=== PATIENT | male | born 1940 | race Caucasian/White ===

== ENCOUNTER → 2016-03-31 | Outpatient (REF) | payer MEDICARE ==
[2016-03-31 12:18] LABS: ALBUMIN 3.9 GM/DL (3.2-5.2); ALBUMIN/GLOBULIN RATIO 1.18 (1.00-1.93); ALKALINE PHOSPHATASE 63 U/L (45-117); ALT/SGPT 36 U/L (12-78); ANION GAP 6 MEQ/L (8-16); AST/SGOT 23 U/L (15-37); BILIRUBIN,TOTAL 0.6 MG/DL (0.2-1.0); BLOOD UREA NITROGEN 16 MG/DL (7-18); CALCIUM LEVEL 9.1 MG/DL (8.8-10.2); CARBON DIOXIDE LEVEL 29 MEQ/L (21-32); CHLORIDE LEVEL 103 MEQ/L (98-107); CHOLESTEROL LEVEL 173 MG/DL (<200); CREATININE FOR GFR 0.97 MG/DL (0.70-1.30); GLOMERULAR FILTRATION RATE > 60.0 (>42); GLUCOSE, FASTING 92 MG/DL (83-110); POTASSIUM SERUM 4.4 MEQ/L (3.5-5.1); SODIUM LEVEL 138 MEQ/L (136-145); TOTAL PROTEIN 7.2 GM/DL (6.4-8.2); TRIGLYCERIDES LEVEL 101 MG/DL (<150)
== END ==
LOC: M SFHCPLAZ 09:05
PROVIDERS: ATTEND Internal Medicine
DX: I10 Essential (primary) hypertension (principal); E78.00 Pure hypercholesterolemia, unspecified

== ENCOUNTER → 2016-04-08 | Outpatient (CLI) | payer MEDICARE ==
--- NOTE | 2016-04-08 11:04 | REP ---
ABDOMINAL AORTIC SONOGRAPHY: HISTORY: Abdominal aortic aneurysm. Comparison sonography April 07, 2014 reported a fusiform distal aortic aneurysm measuring 3.1 cm in AP dimension. TODAY'S SONOGRAPHIC FINDINGS: The abdominal aorta measures 2.1 x 2.5 cm in AP x transverse dimension respectively at the diaphragmatic hiatus. The dimensions at the main renal artery level are 1.5 x 1.7 cm. The mid aorta measures 1.7 x 1.8 cm. There is a 4.3 x 4.2 cm distal aortic fusiform aneurysm noted. This is slightly larger than on the prior study. The craniocaudal span of the aneurysm is 6.6 cm. The right and left common iliac arteries are normal measured 1.0 cm in greatest AP diameter on each side. IMPRESSION: 4.3 x 4.2 cm distal aortic aneurysm, infrarenal, somewhat increased in size over the interval since the April 07, 2014 prior study. Signed by Satya Bradford MD 04/08/2016 04:43 P
== END ==
LOC: M RAD 07:44
PROVIDERS: ATTEND Internal Medicine
DX: I71.4 Abdominal aortic aneurysm, without rupture (principal)

== ENCOUNTER 2016-05-12 09:25 | Emergency (ER) | payer MEDICARE ==
[~2016-05-12] VITALS: Ht 182.9 cm; Wt 112.5 kg
[2016-05-12 10:07] LABS: BASO % 0.3 % (0.0-1.0); EOS # 0.4 K/mm3 (0.0-0.50); EOS % 5.6 % (0.0-3.0); LARGE UNSTAINED CELL # 0.1 K/mm3 (0.0-0.4); LARGE UNSTAINED CELL % 1.8 % (0.0-4.0); LYMPH # 1.6 K/mm3 (1.5-4.5); LYMPH % 23.7 % (24.0-44.0); MEAN CORPUSCULAR HEMOGLOBIN 31.4 pg (27.0-33.0); MEAN CORPUSCULAR HGB CONC 33.1 g/dl (32.0-36.5); MEAN CORPUSCULAR VOLUME 94.9 fl (80.0-96.0); MONO # 0.4 K/mm3 (0.0-0.8); MONO % 6.3 % (0.0-5.0); NEUTROPHILS % 62.4 % (36.0-66.0); PLATELET COUNT, AUTOMATED 175 k/mm3 (150-450); RED CELL DISTRIBUTION WIDTH 12.6 % (11.5-14.5); WHITE BLOOD COUNT 6.3 K/mm3 (4.0-10.0)
--- NOTE | 2016-05-12 10:13 | REP ---
CHEST, PORTABLE: AP portable view of the chest is performed. Mild bibasilar fibrotic changes are seen. There is no acute infiltrate or pulmonary edema. The heart is not enlarged. There is some tortuosity of the thoracic aorta. The mediastinal silhouette is unchanged. IMPRESSION: Mild chronic findings without evidence of acute infiltrate or pulmonary edema. Signed by Darin Freed MD 05/12/2016 04:50 P
[2016-05-12 10:26] LABS: ALBUMIN/GLOBULIN RATIO 1.21 (1.00-1.93); ALKALINE PHOSPHATASE 65 U/L (45-117); ALT/SGPT 33 U/L (12-78); ANION GAP 8 MEQ/L (8-16); AST/SGOT 20 U/L (15-37); BILIRUBIN,DIRECT 0.1 MG/DL (0.0-0.2); BILIRUBIN,TOTAL 0.6 MG/DL (0.2-1.0); BLOOD UREA NITROGEN 19 MG/DL (7-18); CALCIUM LEVEL 9.3 MG/DL (8.8-10.2); CARBON DIOXIDE LEVEL 27 MEQ/L (21-32); CHLORIDE LEVEL 103 MEQ/L (98-107); CREATININE FOR GFR 1.05 MG/DL (0.70-1.30); GLOMERULAR FILTRATION RATE > 60.0 (>42); GLUCOSE, FASTING 134 MG/DL (83-110); POTASSIUM SERUM 4.1 MEQ/L (3.5-5.1); SODIUM LEVEL 138 MEQ/L (136-145); TOTAL PROTEIN 7.3 GM/DL (6.4-8.2)
[2016-05-12] MEDS ORDERED: CLOPIDOGREL 75 MG TAB PO STA (13:41)
[2016-05-12] MEDS ORDERED: CLOPIDOGREL 300 MG TAB (PLAVIX) PO STA (13:52)
[2016-05-12 14:42] VITALS: BP 149/71
--- NOTE | 2016-05-12 18:58 | ECGEPIP ---
Stationary ECG Study [facility] - ED Test Date: 2016-05-12 Pat Name: RICHARD CHANDLER Department: Room: - Gender: M Rnfa: jackie : 1940 Requested By: Meena Mcgee Order Number: [id number] Reading MD: Ravi Benito Measurements Intervals [place] Rate: 71 P: 186 DE: 126 QRS: 25 QRSD: 89 T: 63 QT: 371 QTc: 405 Interpretive Statements SINUS RHYTHM WITH 1ST DEGREE AV BLOCK ABNORMAL RHYTHM ECG SIMILAR TO 08/11/11 Electronically Signed On 05-12-2016 18:58:23 EDT by Ravi Benito
== END 2016-05-12 14:47 ==
LOC: M ED 10:18
DX: I20.9 Angina pectoris, unspecified (principal); I10 Essential (primary) hypertension; E78.5 Hyperlipidemia, unspecified; I71.4 Abdominal aortic aneurysm, without rupture; F41.9 Anxiety disorder, unspecified; F32.9 Major depressive disorder, single episode, unspecified

== ENCOUNTER 2016-06-17 13:03 | Outpatient (RCR) | payer MEDICARE | END 2016-07-06 | LOC: M CR 13:03 | PROVIDERS: ATTEND Internal Medicine Cardiovascular Disease | DX: Z51.89 Encounter for other specified aftercare (principal); I25.10 Atherosclerotic heart disease of native coronary artery without angina pectoris ==

== ENCOUNTER → 2016-09-07 | Outpatient (CLI) | payer MEDICARE ==
--- NOTE | 2016-09-11 13:51 | SLEEPCENT ---
DATE OF STUDY: 09/07/2016 ORDERED BY: Shena Ordoñez Nocturnal polysomnography was performed due to concern for the obstructive sleep apnea syndrome in this patient with a history of snoring, nonrestorative sleep and an abnormal nocturnal oximetry tracing. 7 hours and 58 minutes of data were reviewed. There were 284 minutes of sleep identified. Sleep latency was prolonged at 65 minutes. Rapid eye movement (REM) latency was normal at 101 minutes. Sleep architecture showed fragmentation. Progression was reasonably well maintained. There were 4 REM periods appreciated. Overall sleep efficiency was 60%. The patient's electrocardiogram (EKG) showed a sinus rhythm with PVCs. Average heart rate 54 beats per minute. Electroencephalogram (EEG) showed reasonably normal waveforms for awake and sleep. There were 214 respiratory events identified of 10 seconds in duration or greater for an apnea-hypopnea index of 45.2. The events were obstructive in nature, not exclusive to sleep stage and more frequent, but not exclusive in the supine posture. Arousals from respiratory events occurred 22.8 times per hour and oxygen desaturations were seen into the low 70s. There was also some limb activity appreciated and 4 trains of 30 events. Limb movement arousal index was borderline at 5.9. IMPRESSION: 1. Severe obstructive sleep apnea syndrome (G47.33), apnea-hypopnea index 45.2. 2. Mild periodic limb movement disorder (G47.61), limb movement arousal index 5.9. RECOMMENDATION: The patient should be encouraged to return to the sleep disorder center for pressure therapy. In the interim, alcohol and sedative avoidance should be practiced and caution exercised during the operation of motor vehicles. Pending response to pressure therapy, interventions to reduce the frequency of arousal from limb activity may also be helpful.
== END ==
LOC: M SLEEP 19:49
PROVIDERS: ATTEND Nurse Practitioner Adult Health
DX: G47.33 Obstructive sleep apnea (adult) (pediatric) (principal); G47.61 Periodic limb movement disorder

== ENCOUNTER → 2016-09-18 | Outpatient (CLI) | payer MEDICARE ==
--- NOTE | 2016-09-24 09:34 | SLEEPCENT ---
DATE OF PROCEDURE: 09/18/2016 ORDERED BY: Shena Ordoñez Nocturnal polysomnography was performed for the titration of pressure therapy in this patient with obstructive sleep apnea syndrome. Apnea hypopnea index of 45.2. For testing a ResMed Air Touch full face mask of medium size was used, 4 cm of water pressure were applied to the circuit and the lights were extinguished. 6 hours and 39 minutes of data were reviewed. There were 238 minutes of sleep identified. Sleep latency was prolonged at 42 minutes. Rapid eye movement (REM) latency was short at 58 minutes. Sleep architecture showed some improvement with pressure therapy. There were two REM periods appreciated. The overall sleep efficiency was 60.6%. Patient's EKG showed a sinus rhythm with an average heart rate of 55 beats per minute. EEG showed reasonably normal wave forms for wake and sleep. Respiratory events were fully palliated with a CPAP at a pressure of +10 and persistent limb activity was appreciated. Limb movement arousal index was 12.1 up from the diagnostic study. IMPRESSION: 1. Obstructive sleep apnea syndrome (G47.33). 2. Periodic limb movement disorder (G47.61). RECOMMENDATIONS: Nightly use of pressure therapy at 10 cm of water should be sufficient to address the patients respiratory events. Interventions to reduce the frequency of arousal from limb activity may also improve architecture of sleep.
== END ==
LOC: M SLEEP 20:00
PROVIDERS: ATTEND Nurse Practitioner Adult Health
DX: G47.33 Obstructive sleep apnea (adult) (pediatric) (principal)

== ENCOUNTER → 2017-03-22 | Outpatient (REF) | payer MEDICARE ==
[2017-03-22 11:00] LABS: HEMATOCRIT 48.1 % (42.0-52.0); HEMOGLOBIN 15.9 g/dl (14.0-18.0); MEAN CORPUSCULAR HGB CONC 33.1 g/dl (32.0-36.5); MEAN CORPUSCULAR VOLUME 93.8 fl (80.0-96.0); PLATELET COUNT, AUTOMATED 173 10^3/uL (150-450); RED BLOOD COUNT 5.13 10^6/uL (4.30-6.10); RED CELL DISTRIBUTION WIDTH 13.2 % (11.5-14.5); WHITE BLOOD COUNT 6.3 10^3/uL (4.0-10.0)
[2017-03-22 11:15] LABS: ALBUMIN 4.1 GM/DL (3.2-5.2); ALBUMIN/GLOBULIN RATIO 1.17 (1.00-1.93); ALKALINE PHOSPHATASE 69 U/L (45-117); ALT/SGPT 36 U/L (12-78); ANION GAP 8 MEQ/L (8-16); AST/SGOT 23 U/L (7-37); BILIRUBIN,TOTAL 0.4 MG/DL (0.2-1.0); BLOOD UREA NITROGEN 16 MG/DL (7-18); CALCIUM LEVEL 9.4 MG/DL (8.8-10.2); CARBON DIOXIDE LEVEL 28 MEQ/L (21-32); CHLORIDE LEVEL 104 MEQ/L (98-107); CHOLESTEROL LEVEL 132 MG/DL (<200); CHOLESTEROL RISK RATIO 3.219 (<5); CREATININE FOR GFR 0.98 MG/DL (0.70-1.30); GLOMERULAR FILTRATION RATE > 60.0 (>42); GLUCOSE, FASTING 90 MG/DL (70-100); HDL CHOLESTEROL 41 MG/DL (>40); LDL CHOLESTEROL 72.8 MG/DL (<100); MAGNESIUM LEVEL 2.3 MG/DL (1.8-2.4); NON-HDL-C 91 MG/DL; POTASSIUM SERUM 4.4 MEQ/L (3.5-5.1); SODIUM LEVEL 140 MEQ/L (136-145); TOTAL PROTEIN 7.6 GM/DL (6.4-8.2); TRIGLYCERIDES LEVEL 91 MG/DL (<150)
== END ==
LOC: M SFHCPLAZ 09:03
DX: K21.9 Gastro-esophageal reflux disease without esophagitis (principal); I10 Essential (primary) hypertension; I25.10 Atherosclerotic heart disease of native coronary artery without angina pectoris; E78.00 Pure hypercholesterolemia, unspecified
CPT/HCPCS: 83735

== ENCOUNTER → 2017-10-02 | Outpatient (REF) | payer MEDICARE ==
[2017-10-02 12:07] LABS: ALBUMIN 3.8 GM/DL (3.2-5.2); ALBUMIN/GLOBULIN RATIO 1.09 (1.00-1.93); ALKALINE PHOSPHATASE 55 U/L (45-117); ALT/SGPT 32 U/L (12-78); ANION GAP 7 MEQ/L (8-16); AST/SGOT 18 U/L (7-37); BILIRUBIN,TOTAL 0.5 MG/DL (0.2-1.0); BLOOD UREA NITROGEN 25 MG/DL (7-18); CALCIUM LEVEL 9.3 MG/DL (8.8-10.2); CARBON DIOXIDE LEVEL 28 MEQ/L (21-32); CHLORIDE LEVEL 105 MEQ/L (98-107); CREATININE FOR GFR 1.17 MG/DL (0.70-1.30); GLOMERULAR FILTRATION RATE > 60.0 (>42); GLUCOSE, FASTING 104 MG/DL (70-100); MAGNESIUM LEVEL 2.2 MG/DL (1.8-2.4); POTASSIUM SERUM 5.1 MEQ/L (3.5-5.1); SODIUM LEVEL 140 MEQ/L (136-145); TOTAL PROTEIN 7.3 GM/DL (6.4-8.2)
== END ==
LOC: M SFHCPLAZ 07:56
DX: I10 Essential (primary) hypertension (principal)
CPT/HCPCS: 83735

== ENCOUNTER 2018-04-03 06:42 | Emergency (ER) | payer OTHER, MEDICARE ==
[~2018-04-03] VITALS: Ht 180.3 cm; Wt 108.6 kg
[2018-04-03] MEDS ORDERED: METO37.5 PO (06:57)
[2018-04-03] MEDS ORDERED: ASPI81TA85 PO (06:57)
[2018-04-03] MEDS ORDERED: LISI2.5T76 PO (06:57)
--- NOTE | 2018-04-03 07:16 | REP ---
Clinical: Trauma. Comparison: None . Findings: Age-related atrophy and microvascular ischemic changes are appreciated. The ventricles and sulci are symmetric. Freed-white differentiation is maintained. There is no evidence for acute intracranial hemorrhage, mass/mass effect, pathology or infarction. No extra-axial fluid collection. Calvarium is intact. Mild mucoperiosteal changes involving the paranasal sinuses including small right maxillary mucocele identified. No fluid levels noted to suggest occult injury. Impression: Age related atrophy and microvascular ischemic changes. No acute intracranial hemorrhage, infarction, or mass/mass effect. Electronically Signed by Nghia Robles MD 04/03/2018 07:07 A
--- NOTE | 2018-04-03 07:20 | REP ---
Clinical: Trauma . Technique: Axial noncontrast images from the skull base to the thoracic inlet with coronal and sagittal re-formations Findings: Relatively normal alignment and lordosis is appreciated and there is no evidence for acute fracture / compression injury or subluxation. Sagittal view best demonstrates focal advanced degenerative disc osteophyte complex at the C5-6 including osteophytosis, endplate sclerosis, disc space narrowing, and posterior spurring causing canal stenosis to 5.4 mm maximal AP diameter. Remainder examination demonstrates moderate/early advanced multilevel degenerative disc osteophyte complexes including multilevel uncovertebral hypertrophic changes. Old C7 spinous process fracture noted. Impression: 1. Moderate to advanced degenerative changes predominantly noted at C5-6 where canal stenosis due to hypertrophic facet changes and osteophytosis is appreciated. 2. No evidence for acute cervical spine trauma/injury. Electronically Signed by Nghia Robles MD 04/03/2018 07:11 A
[2018-04-03] MEDS ORDERED: CYCL5TAB PO (07:31)
[2018-04-03 08:10] VITALS: BP 142/70
--- NOTE | 2018-04-03 12:31 | ED PDOC ---
Post-Departure Follow-Up dr martinez faxed formal report of ct c spine for fu Mata Lindsay MD Apr 03, 2018 12:31
== END 2018-04-03 08:13 | disposition home or self-care (01) ==
LOC: M ED 06:42
DX: S16.1XXA Strain of muscle, fascia and tendon at neck level, initial encounter (principal); M47.812 Spondylosis without myelopathy or radiculopathy, cervical region; V43.52XA Car driver injured in collision with other type car in traffic accident, initial encounter; Y92.410 Unspecified street and highway as the place of occurrence of the external cause; I10 Essential (primary) hypertension; R25.1 Tremor, unspecified; M54.9 Dorsalgia, unspecified; F41.9 Anxiety disorder, unspecified; F32.9 Major depressive disorder, single episode, unspecified; Z95.5 Presence of coronary angioplasty implant and graft; Z95.828 Presence of other vascular implants and grafts; Z79.82 Long term (current) use of aspirin

== ENCOUNTER → 2018-04-11 | Outpatient (REF) | payer MEDICARE ==
[~2018-04-11] MED LIST: ASPI81TA85 PO; CYCL5TAB PO; LISI2.5T76 PO; METO37.5 PO
[2018-04-11 10:30] LABS: HEMATOCRIT 47.4 % (42.0-52.0); HEMOGLOBIN 15.6 g/dl (13.5-17.5); MEAN CORPUSCULAR HEMOGLOBIN 30.9 pg (27.0-33.0); MEAN CORPUSCULAR HGB CONC 32.9 g/dl (32.0-36.5); MEAN CORPUSCULAR VOLUME 93.9 fl (80.0-96.0); PLATELET COUNT, AUTOMATED 177 10^3/uL (150-450); RED BLOOD COUNT 5.05 10^6/uL (4.30-6.10); WHITE BLOOD COUNT 7.5 10^3/uL (4.0-10.0)
[2018-04-11 10:51] LABS: ALT/SGPT 36 U/L (12-78); BILIRUBIN,TOTAL 0.7 MG/DL (0.2-1.0); BLOOD UREA NITROGEN 18 MG/DL (7-18); CALCIUM LEVEL 9.7 MG/DL (8.8-10.2); CARBON DIOXIDE LEVEL 29 MEQ/L (21-32); CHLORIDE LEVEL 101 MEQ/L (98-107); CHOLESTEROL LEVEL 160 MG/DL (<200); CREATININE FOR GFR 0.99 MG/DL (0.70-1.30); GLOMERULAR FILTRATION RATE > 60.0 (>42); GLUCOSE, FASTING 95 MG/DL (70-100); HDL CHOLESTEROL 40 MG/DL (>40); LDL CHOLESTEROL 101 MG/DL (<100); MAGNESIUM LEVEL 2.2 MG/DL (1.8-2.4); NON-HDL-C 120 MG/DL; POTASSIUM SERUM 4.6 MEQ/L (3.5-5.1); SODIUM LEVEL 137 MEQ/L (136-145); TOTAL PROTEIN 7.4 GM/DL (6.4-8.2); TRIGLYCERIDES LEVEL 96 MG/DL (<150)
== END ==
LOC: M SFHCPLAZ 07:55
PROVIDERS: ATTEND Internal Medicine
DX: K21.9 Gastro-esophageal reflux disease without esophagitis (principal); I10 Essential (primary) hypertension; E78.00 Pure hypercholesterolemia, unspecified

== ENCOUNTER → 2018-10-22 | Outpatient (REF) | payer MEDICARE ==
[2018-10-22 11:41] LABS: ALBUMIN 3.7 GM/DL (3.2-5.2); ALT/SGPT 29 U/L (12-78); BILIRUBIN,TOTAL 0.5 MG/DL (0.2-1.0); BLOOD UREA NITROGEN 17 MG/DL (7-18); CALCIUM LEVEL 9.3 MG/DL (8.8-10.2); CARBON DIOXIDE LEVEL 28 MEQ/L (21-32); CHLORIDE LEVEL 106 MEQ/L (98-107); CHOLESTEROL LEVEL 140 MG/DL (<200); CHOLESTEROL RISK RATIO 2.916 (<5); CREATININE FOR GFR 1.01 MG/DL (0.70-1.30); GLOMERULAR FILTRATION RATE > 60.0 (>42); GLUCOSE, FASTING 97 MG/DL (70-100); HDL CHOLESTEROL 48 MG/DL (>40); LDL CHOLESTEROL 74 MG/DL (<100); MAGNESIUM LEVEL 2.1 MG/DL (1.8-2.4); NON-HDL-C 92 MG/DL; POTASSIUM SERUM 4.4 MEQ/L (3.5-5.1); SODIUM LEVEL 140 MEQ/L (136-145); TOTAL PROTEIN 6.8 GM/DL (6.4-8.2); TRIGLYCERIDES LEVEL 91 MG/DL (<150)
== END ==
LOC: M SFHCPLAZ 08:05
PROVIDERS: ATTEND Internal Medicine
DX: I10 Essential (primary) hypertension (principal); E78.00 Pure hypercholesterolemia, unspecified

== ENCOUNTER → 2019-04-15 | Outpatient (REF) | payer MEDICARE ==
[2019-04-15 09:50] LABS: HEMATOCRIT 47.6 % (42.0-52.0); HEMOGLOBIN 15.7 g/dl (13.5-17.5); MEAN CORPUSCULAR HEMOGLOBIN 31.7 pg (27.0-33.0); PLATELET COUNT, AUTOMATED 194 10^3/uL (150-450); RED BLOOD COUNT 4.96 10^6/uL (4.30-6.10); WHITE BLOOD COUNT 6.9 10^3/uL (4.0-10.0)
[2019-04-15 10:30] LABS: ALT/SGPT 28 U/L (12-78); BILIRUBIN,TOTAL 0.6 MG/DL (0.2-1.0); BLOOD UREA NITROGEN 22 MG/DL (7-18); CALCIUM LEVEL 9.3 MG/DL (8.8-10.2); CARBON DIOXIDE LEVEL 27 MEQ/L (21-32); CHLORIDE LEVEL 106 MEQ/L (98-107); CHOLESTEROL LEVEL 155 MG/DL (<200); CHOLESTEROL RISK RATIO 3.875 (<5); GLOMERULAR FILTRATION RATE > 60.0 (>42); GLUCOSE, FASTING 99 MG/DL (70-100); HDL CHOLESTEROL 40 MG/DL (>40); LDL CHOLESTEROL 88 MG/DL (<100); MAGNESIUM LEVEL 2.2 MG/DL (1.8-2.4); NON-HDL-C 115 MG/DL; POTASSIUM SERUM 4.5 MEQ/L (3.5-5.1); SODIUM LEVEL 139 MEQ/L (136-145); TOTAL PROTEIN 7.5 GM/DL (6.4-8.2); TRIGLYCERIDES LEVEL 136 MG/DL (<150)
== END ==
LOC: M SFHCPLAZ 07:58
PROVIDERS: ATTEND Internal Medicine
DX: K21.9 Gastro-esophageal reflux disease without esophagitis (principal); I10 Essential (primary) hypertension; E78.00 Pure hypercholesterolemia, unspecified

== ENCOUNTER → 2019-04-16 | Outpatient (CLI) | payer MEDICARE ==
--- NOTE | 2019-04-16 09:58 | REPPI ---
PA and lateral chest, three views including two PA and single lateral views: Comparison is 08/11/2011. The lung quinones are clear. The cardiac size is normal. The rossi, mediastinum, and skeletal structures are unremarkable except for multilevel thoracic spine degenerative disc disease, unchanged. Impression: Negative PA and lateral chest. There is no interval change. Electronically Signed by Darin Swann MD 04/16/2019 09:51 A
== END ==
LOC: M PLAIMG 08:11
PROVIDERS: ATTEND Internal Medicine
DX: M51.34 Other intervertebral disc degeneration, thoracic region (principal); R05 Cough
CPT/HCPCS: 71046; G0463

== ENCOUNTER 2019-08-25 06:36 | Emergency (ER) | payer MEDICARE ==
[~2019-08-25] VITALS: Ht 180.3 cm; Wt 107.3 kg
[~2019-08-25 06:36] MED LIST changes: -ASPI81TA85 PO; +ASPI81TA86 PO; -LISI2.5T76 PO; +LISI2.5T8 PO
[2019-08-25] MEDS ORDERED: ATOR40TA75 PO (06:47)
[2019-08-25] MEDS ORDERED: LOSA100T8 (06:47)
[2019-08-25 07:29] LABS: BASO # 0.1 10^3/uL (0.0-0.2); BASO % 0.8 % (0.0-1.0); EOS # 0.9 10^3/uL (0.0-0.5); EOS % 11.9 % (0.0-3.0); HEMATOCRIT 46.8 % (42.0-52.0); HEMOGLOBIN 15.5 g/dl (13.5-17.5); LYMPH # 1.3 10^3/uL (1.5-5.0); LYMPH % 16.2 % (24.0-44.0); MEAN CORPUSCULAR HEMOGLOBIN 31.3 pg (27.0-33.0); MEAN CORPUSCULAR HGB CONC 33.1 g/dl (32.0-36.5); MEAN CORPUSCULAR VOLUME 94.5 fl (80.0-96.0); MONO # 0.8 10^3/uL (0.0-0.8); MONO % 10.5 % (0.0-5.0); NEUTROPHILS # 4.7 10^3/uL (1.5-8.5); NEUTROPHILS % 60.3 % (36.0-66.0); PLATELET COUNT, AUTOMATED 188 10^3/uL (150-450); RED BLOOD COUNT 4.95 10^6/uL (4.30-6.10); WHITE BLOOD COUNT 7.8 10^3/uL (4.0-10.0)
[2019-08-25] MEDS: COMBIVENT RESPIMAT 100-20MCG INHALER 4GM INH SCH ×3 (07:40→09:29)
[2019-08-25 07:54] LABS: BLOOD UREA NITROGEN 12 MG/DL (7-18); CALCIUM LEVEL 9.4 MG/DL (8.8-10.2); CARBON DIOXIDE LEVEL 26 MEQ/L (21-32); CHLORIDE LEVEL 106 MEQ/L (98-107); CK-MB VALUE MASS 3.4 NG/ML (<3.6); CPK CREATINE PHOSPHOKINASE 230 U/L (39-308); CREATININE FOR GFR 0.98 MG/DL (0.70-1.30); GLOMERULAR FILTRATION RATE > 60.0 (>42); GLUCOSE, FASTING 116 MG/DL (70-100); MB/CK RELATIVE INDEX 1.48 (< OR =4); NT-PRO BNP 230 PG/ML (<450); POTASSIUM SERUM 4.5 MEQ/L (3.5-5.1); SODIUM LEVEL 137 MEQ/L (136-145); TROPONIN I < 0.02 NG/ML (< 0.10)
[2019-08-25] MEDS ORDERED: ISOVUE-370 76% 100ML VIAL As Ordered ONE (08:14)
[2019-08-25] MEDS ORDERED: dexameTHASONE 20MG/5ML VIAL (J1100 PER 1MG) IV ONE (08:15)
[2019-08-25 09:15] VITALS: BP 161/78
[2019-08-25] MEDS ORDERED: COMBAER6 INH (10:13)
[2019-08-25] MEDS ORDERED: PRED20TA PO (10:13)
--- NOTE | 2019-08-25 11:27 | REP ---
CHEST PORTABLE: REASON FOR EXAM: Dyspnea. COMPARISON EXAM: 04/16/2019 FINDINGS: The technique utilized in obtaining the radiograph has magnified the cardiac silhouette and accentuated the interstitial markings. The superior mediastinal structures are midline. The cardiac silhouette is unremarkable in size, shape, and position. The diaphragmatic surfaces of the lungs are regular, and the costophrenic angles are clear. The pulmonary quinones are clear. The imaged osseous structures are intact. IMPRESSION: There is no acute cardiopulmonary disease. No significant change from the prior exam other than technique. Electronically Signed by Wander Sow DO 08/25/2019 12:07 P
--- NOTE | 2019-08-25 11:36 | REP ---
REASON FOR EXAM: Dyspnea. COMPARISON EXAM: 05/31/2010 CONTRAST: 75 mL Isovue-370. There is excellent visualization of the pulmonary arterial vasculature. There are no focal filling defects present that would be considered consistent with acute pulmonary emboli. There are no pleural or pericardial effusions. There is subcarinal adenopathy, which is unchanged from 05/31/2010. The imaged upper abdomen and imaged osseous structures are stable. Evaluation of the lung quinones shows no new abnormal nodules, masses, or opacities. Stable nodules are seen in the left lower lobe. IMPRESSION: No evidence of acute pulmonary emboli and no evidence of acute disease or significant change compared to the prior exam, as described above. Electronically Signed by Wander Sow DO 08/25/2019 12:07 P
== END 2019-08-25 10:34 | disposition home or self-care (01) ==
LOC: M ED 06:36
DX: J45.909 Unspecified asthma, uncomplicated (principal); I10 Essential (primary) hypertension; E78.5 Hyperlipidemia, unspecified; K21.9 Gastro-esophageal reflux disease without esophagitis; K76.0 Fatty (change of) liver, not elsewhere classified; G47.33 Obstructive sleep apnea (adult) (pediatric); Z79.899 Other long term (current) drug therapy; Z79.82 Long term (current) use of aspirin; Z87.891 Personal history of nicotine dependence
CPT/HCPCS: 36600; 71045; 71275; 80048; 82550; 82553; 82803; 83880; 84484; 85025; 87040; 87070; 87205; 94640; 94664; 96374; 99284; J1100; Q9967

== ENCOUNTER → 2019-09-17 | Outpatient (REF) | payer MEDICARE ==
[~2019-09-17] MED LIST changes: +ATOR40TA75 PO; +COMBAER6 INH; +LOSA100T8; +PRED20TA PO
[2019-11-01 11:40] LABS: BLOOD UREA NITROGEN 25 MG/DL (7-18); CALCIUM LEVEL 9.3 MG/DL (8.8-10.2); CARBON DIOXIDE LEVEL 31 MEQ/L (21-32); CHLORIDE LEVEL 103 MEQ/L (98-107); CREATININE FOR GFR 0.96 MG/DL (0.70-1.30); GLOMERULAR FILTRATION RATE > 60.0 (>42); GLUCOSE, FASTING 79 MG/DL (70-100); POTASSIUM SERUM 4.4 MEQ/L (3.5-5.1); SODIUM LEVEL 137 MEQ/L (136-145)
== END ==
LOC: M PLALAB 15:53
PROVIDERS: ATTEND Nurse Practitioner Family
DX: E87.1 Hypo-osmolality and hyponatremia (principal)

== ENCOUNTER → 2019-12-12 | Outpatient (CLI) | payer MEDICARE ==
[~2019-12-12] MED LIST changes: +METHACHOLINE KIT (J7674) INH ONE
--- NOTE | 2019-12-12 13:16 | PFTRPT ---
Site: [facility], [address] [place], [address] ID: [id number] Name: RICHARD CHANDLER Visit Date: 12/12/2019 Second ID: [id number] Referring Doctor: Shena Styles Reviewing Doctor: Jero Childers MD [employer] Hel[employer] Machine: Hollie VELEZ, ANTOINE Age: 79 : 1940 Sex: Male Race: Height: 71.00 Inches Weight: 242.00 Lbs BSA: 2.29 Order IDs: [id number] Requested Test(s): <RESP-PFT.METH CHAL> Diagnosis: R05 test appear to be valid, although the ATS standard for "end of test" was not met. Pt was given four puffs of albuterol for post bronchodilator. Review Status: Not Reviewed Pre-Bronch Post-Bronch Pred Actual %Pred Actual %Chng SPIROMETRY FVC (L) 4.30 3.23 75 3.65 12 FEV1 (L) 3.09 2.13 68 2.51 17 FEV1/FVC (%) 72 66 91 69 4 FEF 25% (L/sec) 7.57 3.79 50 5.57 46 FEF 50% (L/sec) 4.29 1.68 39 2.71 61 FEF 75% (L/sec) 1.15 0.34 29 0.82 139 FEF 25-75% (L/sec) 2.19 1.16 52 2.11 81 FEF Max (L/sec) 7.76 4.21 54 5.76 36 FIVC (L) 2.24 2.87 28 FIF 50% (L/sec) 4.26 2.93 68 4.84 65 FIF Max (L/sec) 3.00 4.90 63 Expiratory Time (sec) 7.31 7.56 3 Back Extrap Vol (L) 0.10 0.11 15 Time To FEFmax (sec) 0.141 0.111 -20
== END ==
LOC: M CARPUL 07:42
PROVIDERS: ATTEND Nurse Practitioner Adult Health
DX: R05 Cough (principal)
CPT/HCPCS: 94070; 95070; J7674

== ENCOUNTER → 2020-04-06 | Outpatient (REF) | payer MEDICARE ==
[~2020-04-06] MED LIST changes: -METHACHOLINE KIT (J7674) INH ONE
[2020-04-06 11:12] LABS: ALT/SGPT 35 U/L (12-78); BILIRUBIN,TOTAL 0.7 MG/DL (0.2-1.0); BLOOD UREA NITROGEN 17 MG/DL (7-18); CALCIUM LEVEL 9.4 MG/DL (8.8-10.2); CARBON DIOXIDE LEVEL 28 MEQ/L (21-32); CHLORIDE LEVEL 104 MEQ/L (98-107); CHOLESTEROL LEVEL 154 MG/DL (<200); CREATININE FOR GFR 0.98 MG/DL (0.70-1.30); GLOMERULAR FILTRATION RATE > 60.0 (>42); GLUCOSE, FASTING 108 MG/DL (70-100); HDL CHOLESTEROL 55 MG/DL (>40); LDL CHOLESTEROL 82 MG/DL (<100); MAGNESIUM LEVEL 2.1 MG/DL (1.8-2.4); NON-HDL-C 99 MG/DL; POTASSIUM SERUM 4.5 MEQ/L (3.5-5.1); SODIUM LEVEL 138 MEQ/L (136-145); TOTAL PROTEIN 7.2 GM/DL (6.4-8.2); TRIGLYCERIDES LEVEL 84 MG/DL (<150)
== END ==
LOC: M PLALAB 08:16
PROVIDERS: ATTEND Internal Medicine
DX: E78.00 Pure hypercholesterolemia, unspecified (principal); I10 Essential (primary) hypertension

== ENCOUNTER → 2020-09-24 | Outpatient (CLI) | payer MEDICARE ==
[2020-09-24 11:39] LABS: BASO # 0.1 10^3/uL (0.0-0.2); BASO % 0.7 % (0.0-1.0); EOS # 0.2 10^3/uL (0.0-0.5); EOS % 2.4 % (0.0-3.0); HEMATOCRIT 45.6 % (42.0-52.0); HEMOGLOBIN 14.8 g/dl (13.5-17.5); LYMPH # 1.2 10^3/uL (1.5-5.0); LYMPH % 15.9 % (24.0-44.0); MEAN CORPUSCULAR HEMOGLOBIN 31.2 pg (27.0-33.0); MEAN CORPUSCULAR HGB CONC 32.5 g/dl (32.0-36.5); MONO # 1.1 10^3/uL (0.0-0.8); MONO % 14.4 % (2.0-8.0); NEUTROPHILS # 4.9 10^3/uL (1.5-8.5); NEUTROPHILS % 66.3 % (36.0-66.0); PLATELET COUNT, AUTOMATED 195 10^3/uL (150-450); RED BLOOD COUNT 4.75 10^6/uL (4.30-6.10); WHITE BLOOD COUNT 7.4 10^3/uL (4.0-10.0)
[2020-09-24 12:22] LABS: ALBUMIN 3.8 GM/DL (3.2-5.2); ALT/SGPT 33 U/L (12-78); BILIRUBIN,TOTAL 0.8 MG/DL (0.2-1.0); BLOOD UREA NITROGEN 18 MG/DL (7-18); CALCIUM LEVEL 9.5 MG/DL (8.8-10.2); CARBON DIOXIDE LEVEL 27 MEQ/L (21-32); CHLORIDE LEVEL 106 MEQ/L (98-107); CREATININE FOR GFR 0.94 MG/DL (0.70-1.30); GLOMERULAR FILTRATION RATE > 60.0 (>42); GLUCOSE, FASTING 99 MG/DL (70-100); MAGNESIUM LEVEL 2.2 MG/DL (1.8-2.4); POTASSIUM SERUM 4.5 MEQ/L (3.5-5.1); SODIUM LEVEL 139 MEQ/L (136-145); TOTAL PROTEIN 6.9 GM/DL (6.4-8.2)
== END ==
LOC: M PLALAB 08:05
PROVIDERS: ATTEND Internal Medicine
DX: Z12.5 Encounter for screening for malignant neoplasm of prostate (principal)
CPT/HCPCS: 36415; 80053; 83735; 85025; G0103

== ENCOUNTER → 2020-11-27 | Outpatient (CLI) | payer MEDICARE | LOC: M PLALAB 07:53 | PROVIDERS: ATTEND Internal Medicine | DX: R97.20 Elevated prostate specific antigen [PSA] (principal); Z79.82 Long term (current) use of aspirin; Z79.51 Long term (current) use of inhaled steroids; Z79.52 Long term (current) use of systemic steroids; Z79.899 Other long term (current) drug therapy ==

== ENCOUNTER → 2021-02-03 | Outpatient (REF) | payer MEDICARE | LOC: M SMT PRO 09:08 | PROVIDERS: ATTEND Urology | DX: C61 Malignant neoplasm of prostate (principal) | CPT/HCPCS: 88341; 88342; G0416 ==

== ENCOUNTER 2021-02-15 07:28 | Emergency (ER) | payer MEDICARE ==
[~2021-02-15] VITALS: Ht 180.3 cm; Wt 108.1 kg
[2021-02-15] MEDS ORDERED: dexameTHASONE 20MG/5ML VIAL (J1100 PER 1MG) IV ONE (08:00)
[2021-02-15] MEDS ORDERED: COMBIVENT RESPIMAT 100-20MCG INHALER 4GM INH SCH (08:00)
[2021-02-15 08:32] LABS: BASO # 0.1 10^3/uL (0.0-0.2); BASO % 0.9 % (0.0-1.0); EOS % 10.5 % (0.0-3.0); HEMATOCRIT 47.8 % (42.0-52.0); HEMOGLOBIN 16.2 g/dl (13.5-17.5); LYMPH # 1.5 10^3/uL (1.5-5.0); LYMPH % 15.8 % (24.0-44.0); MEAN CORPUSCULAR HEMOGLOBIN 31.3 pg (27.0-33.0); MEAN CORPUSCULAR HGB CONC 33.9 g/dl (32.0-36.5); MEAN CORPUSCULAR VOLUME 92.5 fl (80.0-96.0); MONO # 1.1 10^3/uL (0.0-0.8); MONO % 11.3 % (2.0-8.0); NEUTROPHILS # 5.8 10^3/uL (1.5-8.5); NEUTROPHILS % 61.3 % (36.0-66.0); PLATELET COUNT, AUTOMATED 197 10^3/uL (150-450); RED BLOOD COUNT 5.17 10^6/uL (4.30-6.10); WHITE BLOOD COUNT 9.5 10^3/uL (4.0-10.0)
[2021-02-15 09:01] LABS: ALBUMIN 3.8 GM/DL (3.2-5.2); ALT/SGPT 32 U/L (12-78); BILIRUBIN,DIRECT 0.2 MG/DL (0.0-0.2); BILIRUBIN,TOTAL 0.7 MG/DL (0.2-1.0); BLOOD UREA NITROGEN 13 MG/DL (7-18); CALCIUM LEVEL 9.5 MG/DL (8.8-10.2); CARBON DIOXIDE LEVEL 25 MEQ/L (21-32); CHLORIDE LEVEL 105 MEQ/L (98-107); CREATININE FOR GFR 0.91 MG/DL (0.70-1.30); GLOMERULAR FILTRATION RATE > 60.0 (>42); GLUCOSE, FASTING 120 MG/DL (70-100); NT-PRO BNP 84 PG/ML (<450); POTASSIUM SERUM 4.2 MEQ/L (3.5-5.1); SODIUM LEVEL 139 MEQ/L (136-145); THYROXINE (T4) 8.9 UG/DL (4.5-12.0); TOTAL PROTEIN 7.3 GM/DL (6.4-8.2)
[2021-02-15] MEDS ORDERED: ISOVUE-370 76% 100ML VIAL As Ordered ONE (09:38)
[2021-02-15] MEDS ORDERED: BENZONATATE 100MG CAPSULE PO ONE (10:10)
[2021-02-15] MEDS ORDERED: PRED20TA PO (12:45)
[2021-02-15] MEDS ORDERED: TESS100C PO (12:45)
[2021-02-15 12:52] VITALS: BP 161/80
== END 2021-02-15 12:58 | disposition home or self-care (01) ==
LOC: M ED 07:28
DX: J45.909 Unspecified asthma, uncomplicated (principal); I25.10 Atherosclerotic heart disease of native coronary artery without angina pectoris; I10 Essential (primary) hypertension; E78.5 Hyperlipidemia, unspecified; K21.9 Gastro-esophageal reflux disease without esophagitis; G47.33 Obstructive sleep apnea (adult) (pediatric); Z95.5 Presence of coronary angioplasty implant and graft; Z85.46 Personal history of malignant neoplasm of prostate; I71.3 Abdominal aortic aneurysm, ruptured; Z87.891 Personal history of nicotine dependence; Z79.82 Long term (current) use of aspirin; Z79.899 Other long term (current) drug therapy
CPT/HCPCS: 71045; 71275; 80048; 80076; 83605; 83880; 84436; 84443; 85025; 87040; 87070; 87077; 87205; 87798; 93005; 93041; 94640; 94760; 96374; 99285; J1100; Q9967

== ENCOUNTER → 2021-03-08 | Outpatient (CLI) | payer MEDICARE ==
[~2021-03-08] MED LIST changes: +TESS100C PO
== END ==
LOC: M PLALAB 08:10
PROVIDERS: ATTEND Urology
DX: C61 Malignant neoplasm of prostate (principal); R97.20 Elevated prostate specific antigen [PSA]

== ENCOUNTER → 2021-08-03 | Outpatient (CLI) | payer MEDICARE ==
[2021-08-03 10:48] LABS: BASO # 0.1 10^3/uL (0.0-0.2); BASO % 0.8 % (0.0-1.0); EOS # 0.9 10^3/uL (0.0-0.5); EOS % 10.1 % (0.0-3.0); HEMOGLOBIN 15.6 g/dl (13.5-17.5); LYMPH # 1.6 10^3/uL (1.5-5.0); LYMPH % 18.2 % (24.0-44.0); MEAN CORPUSCULAR HEMOGLOBIN 30.8 pg (27.0-33.0); MEAN CORPUSCULAR HGB CONC 32.5 g/dl (32.0-36.5); MEAN CORPUSCULAR VOLUME 94.9 fl (80.0-96.0); MONO # 1.3 10^3/uL (0.0-0.8); MONO % 15.2 % (2.0-8.0); NEUTROPHILS # 4.7 10^3/uL (1.5-8.5); NEUTROPHILS % 55.5 % (36.0-66.0); PLATELET COUNT, AUTOMATED 195 10^3/uL (150-450); RED BLOOD COUNT 5.06 10^6/uL (4.30-6.10); WHITE BLOOD COUNT 8.5 10^3/uL (4.0-10.0)
[2021-08-03 11:23] LABS: ALT/SGPT 34 U/L (12-78); BILIRUBIN,TOTAL 0.7 MG/DL (0.2-1.0); BLOOD UREA NITROGEN 22 MG/DL (7-18); CALCIUM LEVEL 9.4 MG/DL (8.8-10.2); CARBON DIOXIDE LEVEL 27 MEQ/L (21-32); CHLORIDE LEVEL 104 MEQ/L (98-107); CHOLESTEROL LEVEL 146 MG/DL (<200); CHOLESTEROL RISK RATIO 2.807 (<5); CREATININE FOR GFR 0.98 MG/DL (0.70-1.30); GLOMERULAR FILTRATION RATE > 60.0 (>42); GLUCOSE, FASTING 105 MG/DL (70-100); HDL CHOLESTEROL 52 MG/DL (>40); LDL CHOLESTEROL 79 MG/DL (<100); NON-HDL-C 94 MG/DL; POTASSIUM SERUM 4.2 MEQ/L (3.5-5.1); SODIUM LEVEL 138 MEQ/L (136-145); TOTAL PROTEIN 7.2 GM/DL (6.4-8.2); TRIGLYCERIDES LEVEL 76 MG/DL (<150)
== END ==
LOC: M PLALAB 07:53
PROVIDERS: ATTEND Internal Medicine
DX: E78.00 Pure hypercholesterolemia, unspecified (principal); C61 Malignant neoplasm of prostate

== ENCOUNTER → 2021-08-06 | Outpatient (CLI) | payer MEDICARE | LOC: M PLALAB 07:47 | PROVIDERS: ATTEND Urology | DX: C61 Malignant neoplasm of prostate (principal) ==

== ENCOUNTER → 2022-02-14 | Outpatient (CLI) | payer MEDICARE | LOC: M PLALAB 07:58 | PROVIDERS: ATTEND Urology | DX: C61 Malignant neoplasm of prostate (principal) ==

== ENCOUNTER → 2022-04-08 | Outpatient (CLI) | payer MEDICARE | LOC: M RAD 08:10 | PROVIDERS: ATTEND Nurse Practitioner Adult Health | DX: J45.41 Moderate persistent asthma with (acute) exacerbation (principal) ==

== ENCOUNTER → 2022-04-19 | Outpatient (CLI) | payer MEDICARE | LOC: M PLAIMG 10:16 | PROVIDERS: ATTEND Nurse Practitioner Adult Health | DX: R91.8 Other nonspecific abnormal finding of lung field (principal); R05.9 Cough, unspecified; R06.02 Shortness of breath ==

== ENCOUNTER → 2022-06-08 | Outpatient (CLI) | payer MEDICARE | LOC: M RAD 07:51 | PROVIDERS: ATTEND Nurse Practitioner Adult Health | DX: R91.8 Other nonspecific abnormal finding of lung field (principal) ==

== ENCOUNTER → 2022-08-11 | Outpatient (CLI) | payer MEDICARE ==
[~2022-08-11] MED LIST changes: +ALBU8.5H INH; +BAYE81TA10 PO; +METO1TAB32 PO
== END ==
LOC: M PLALAB 11:50
PROVIDERS: ATTEND Urology
DX: C61 Malignant neoplasm of prostate (principal)

== ENCOUNTER 2022-10-21 16:55 | Inpatient (IN) | payer MEDICARE ==
[~2022-10-21] VITALS: Ht 180.3 cm; Wt 112.3 kg
[~2022-10-21 16:55] MED LIST changes: -LOSA100T8; +LOSA100T8 PO
[2022-10-21 17:56] LABS: VENOUS HCO3 25.1 MMOL/L (23.0-27.0); VENOUS O2 SATURATION 64.2 % (60.0-80.0); VENOUS PARTIAL PRESSURE CO2 46.9 mmHg (38.0-50.0); VENOUS PARTIAL PRESSURE O2 33.8 mmHg (30.0-50.0); VENOUS PH 7.347 UNITS (7.330-7.430); VENOUS STANDARD HCO3 22.7 MMOL/L; VENOUS TOTAL CO2 26.6 MMOL/L (24.0-28.0)
[2022-10-21 18:03] LABS: BASO # 0.1 10^3/uL (0.0-0.2); BASO % 0.4 % (0.0-1.0); EOS # 0.8 10^3/uL (0.0-0.5); EOS % 6.1 % (0.0-3.0); HEMATOCRIT 49.3 % (42.0-52.0); HEMOGLOBIN 16.1 g/dl (13.5-17.5); LYMPH # 0.6 10^3/uL (1.5-5.0); LYMPH % 4.8 % (24.0-44.0); MEAN CORPUSCULAR HEMOGLOBIN 31.2 pg (27.0-33.0); MEAN CORPUSCULAR HGB CONC 32.7 g/dl (32.0-36.5); MEAN CORPUSCULAR VOLUME 95.5 fl (80.0-96.0); MONO # 1.1 10^3/uL (0.0-0.8); NEUTROPHILS # 9.9 10^3/uL (1.5-8.5); NEUTROPHILS % 79.4 % (36.0-66.0); PLATELET COUNT, AUTOMATED 174 10^3/uL (150-450); RED BLOOD COUNT 5.16 10^6/uL (4.30-6.10); WHITE BLOOD COUNT 12.5 10^3/uL (4.0-10.0)
[2022-10-21] MEDS ORDERED: methylPREDNISolone 125MG 2ML VIAL IV ONE (18:05)
[2022-10-21 18:24] LABS: CK-MB VALUE MASS 2.5 NG/ML (<3.6)
[2022-10-21] MEDS: IPRATROPIUM 0.5MG/ALBUTEROL 2.5MG INH SOL UD 3ML (DUONEB) NEB PRN ×2 (18:24→18:25)
[2022-10-21 18:26] LABS: ALBUMIN 4.1 G/DL (3.2-5.2); ALKALINE PHOSPHATASE 68 U/L (46-116); ALT/SGPT 30 U/L (7.0-40); AST/SGOT 18 U/L (<34); BILIRUBIN,DIRECT 0.3 MG/DL (<0.4); BILIRUBIN,TOTAL 0.7 MG/DL (0.3-1.2); BLOOD UREA NITROGEN 12 MG/DL (9-23); CALCIUM LEVEL 9.3 MG/DL (8.3-10.6); CARBON DIOXIDE LEVEL 27 MMOL/L (20-31); CHLORIDE LEVEL 103 MMOL/L (98-107); CPK CREATINE PHOSPHOKINASE 143 U/L (46-171); CREATININE FOR GFR 0.93 MG/DL (0.70-1.30); GLOMERULAR FILTRATION RATE > 60.0 (>35); GLUCOSE, FASTING 103 MG/DL (74-106); MB/CK RELATIVE INDEX 1.74 (< OR =4); POTASSIUM SERUM 4.1 MMOL/L (3.5-5.1); SODIUM LEVEL 138 MMOL/L (136-145); TOTAL PROTEIN 7.4 G/DL (5.7-8.2)
[2022-10-21] MEDS ORDERED: ISOVUE-370 76% 100ML VIAL As Ordered ONE (18:33)
[2022-10-21 18:38] LABS: ABG BASE EXCESS 0.4 (-2.0-2.0); ABG HCO3 23.4 MMOL/L (22.0-26.0); ABG O2 SATURATION 94.1 % (95.0-99.0); ABG PARTIAL PRESSURE CO2 33.6 mmHg (35.0-45.0); ABG PARTIAL PRESSURE O2 64.6 mmHg (75.0-100.0); ABG STANDARD HCO3 24.7 MMOL/L. (22.0-26.0); ABG TOTAL CO2 24.4 MMOL/L (23.0-31.0); ABG pH (ARTERIAL) 7.461 UNITS (7.350-7.450)
[2022-10-21] MEDS ORDERED: cefTRIAXone SOD 1 GM in D5W MINI-BAG PLUS 50 ML IV ONE (19:45)
[2022-10-21] MEDS ORDERED: AZITHROMYCIN 250MG TABLET PO ONE (19:45)
[2022-10-21] MEDS ORDERED: dilTIAZem 25MG/5ML VIAL IV STA (20:35)
[2022-10-21] MEDS ORDERED: BREO1INH3 PO (20:47)
[2022-10-21] MEDS ORDERED: ALBU2.5V10 NEB (20:47)
[2022-10-21] MEDS ORDERED: MELO15TA28 PO (20:47)
[2022-10-21] MEDS ORDERED: HOME MED LIST COMPLETE! XX SCH (20:50)
[2022-10-21] MEDS ORDERED: MOM 30ML SUSPENSION UDC PO PRN (21:45)
[2022-10-21] MEDS ORDERED: MELOXICAM (MOBIC) 7.5 MG TAB PO PRN (21:45)
[2022-10-21] MEDS ORDERED: ACETAMINOPHEN TAB 650MG DOSE (2X325MG) PO PRN (21:45)
[2022-10-21] MEDS ORDERED: LEVALBUTEROL HFA 45MCG/ACT 15GM INHALER INH PRN (21:45)
[2022-10-21] MEDS ORDERED: MAALOX 30 ML SUSP *UDC PO PRN (21:45)
[2022-10-21] MEDS: dilTIAZem 30 MG TAB PO SCH (22:23)
[2022-10-21] MEDS: LEVALBUTEROL 1.25MG 0.5ML CONCENTRATE NEB NEB SCH (22:23)
[2022-10-21 22:54] LABS: PROCALCITONIN <0.04 ng/ml
[2022-10-22] VITALS (11 sets, daily range): BP systolic 117–136; BP diastolic 56–91; TEMP 96.6–99.7; O2SAT 92–95
[2022-10-22] MEDS: LEVALBUTEROL 1.25MG 0.5ML CONCENTRATE NEB NEB SCH ×2 (01:23→07:44)
[2022-10-22 01:26] LABS: INR 1.11
[2022-10-22 01:27] LABS: PARTIAL THROMBOPLASTIN TIME 28.3 SECONDS (24.8-34.2)
[2022-10-22] MEDS: APIXABAN 5 MG TAB (ELIQUIS) PO SCH ×3 (02:03→20:36)
[2022-10-22] MEDS: ADVAIR HFA 45/21MCG INHALER INH SCH ×2 (07:45→19:31)
[2022-10-22] MEDS: guaiFENesin ER 600 MG TAB PO SCH ×2 (08:33→20:36)
[2022-10-22] MEDS: predniSONE 20 MG TAB PO SCH (08:33)
[2022-10-22] MEDS: dilTIAZem 30 MG TAB PO SCH (08:33)
[2022-10-22] MEDS ORDERED: ASPIRIN 81MG ENTERIC TABLET PO SCH (09:00)
[2022-10-22] MEDS ORDERED: LOSARTAN 50MG TABLET PO SCH (09:00)
[2022-10-22] MEDS: METOPROLOL SUCC *XL* 25MG TAB (TopROL *XL*) PO SCH (10:01)
[2022-10-22] MEDS: LEVALBUTEROL 1.25MG 0.5ML CONCENTRATE NEB INH SCH ×4 (11:01→23:05)
[2022-10-22] MEDS ORDERED: ELIQ5TAB PO (11:17)
[2022-10-22] MEDS ORDERED: AZITHROMYCIN 250MG TABLET PO SCH (20:00)
[2022-10-22] MEDS ORDERED: ATORVASTATIN 20 MG TAB PO SCH (21:00)
[2022-10-23] VITALS: BP 122/59; TEMP 97.5; O2SAT 94
[2022-10-23 04:00] VITALS: BP 121/71; TEMP 98.3; O2SAT 95
[2022-10-23] MEDS: LEVALBUTEROL 1.25MG 0.5ML CONCENTRATE NEB INH SCH ×2 (04:29→07:11)
[2022-10-23] MEDS: ADVAIR HFA 45/21MCG INHALER INH SCH (07:11)
[2022-10-23 07:42] VITALS: BP 108/73; TEMP 97.5; O2SAT 94
[2022-10-23] MEDS ORDERED: LOSA50TA5 PO (08:17)
[2022-10-23] MEDS ORDERED: METO1TAB7 PO (08:17)
[2022-10-23] MEDS ORDERED: PRED20TA PO (08:20)
[2022-10-23] MEDS ORDERED: MUCI600T31 PO (08:20)
[2022-10-23] MEDS ORDERED: AZIT-12 PO ×2 (08:20→08:58)
[2022-10-23 08:31] VITALS: BP 117/59
[2022-10-23] MEDS: guaiFENesin ER 600 MG TAB PO SCH (08:33)
[2022-10-23] MEDS: APIXABAN 5 MG TAB (ELIQUIS) PO SCH (08:33)
[2022-10-23] MEDS: predniSONE 20 MG TAB PO SCH (08:33)
[2022-10-23 08:34] VITALS: BP 117/59
[2022-10-23] MEDS: METOPROLOL SUCC *XL* 25MG TAB (TopROL *XL*) PO SCH (08:34)
[2022-10-23] MEDS ORDERED: LOSARTAN 50MG TABLET PO SCH (09:00)
== END 2022-10-23 11:39 | disposition home or self-care (01) | DRG 308 ==
LOC: M ED 16:55 → M ED INP 21:44 → ENRESERV 10-22 00:56 → M PCU 10-22 01:45
PROVIDERS: ADMIT Internal Medicine; ATTEND Internal Medicine
DX: I48.91 Unspecified atrial fibrillation (principal); J18.9 Pneumonia, unspecified organism; J96.01 Acute respiratory failure with hypoxia; J45.901 Unspecified asthma with (acute) exacerbation; M19.90 Unspecified osteoarthritis, unspecified site; I10 Essential (primary) hypertension; G47.33 Obstructive sleep apnea (adult) (pediatric); E78.5 Hyperlipidemia, unspecified; I25.10 Atherosclerotic heart disease of native coronary artery without angina pectoris; Z95.5 Presence of coronary angioplasty implant and graft; C61 Malignant neoplasm of prostate; Z87.891 Personal history of nicotine dependence; Z79.82 Long term (current) use of aspirin; Z79.899 Other long term (current) drug therapy; Z20.822 Contact with and (suspected) exposure to COVID-19

== ENCOUNTER → 2022-11-03 | Outpatient (CLI) | payer MEDICARE ==
[~2022-11-03] MED LIST changes: +ALBU2.5V10 NEB; +AZIT-12 PO; +BREO1INH3 PO; +ELIQ5TAB PO; +LOSA50TA5 PO; +MELO15TA28 PO; +METO1TAB7 PO; +MUCI600T31 PO
[2022-11-03 13:57] LABS: HEMATOCRIT 47.9 % (42.0-52.0); HEMOGLOBIN 15.7 g/dl (13.5-17.5); MEAN CORPUSCULAR HEMOGLOBIN 31.6 pg (27.0-33.0); MEAN CORPUSCULAR HGB CONC 32.8 g/dl (32.0-36.5); MEAN CORPUSCULAR VOLUME 96.4 fl (80.0-96.0); PLATELET COUNT, AUTOMATED 152 10^3/uL (150-450); RED BLOOD COUNT 4.97 10^6/uL (4.30-6.10); WHITE BLOOD COUNT 10.7 10^3/uL (4.0-10.0)
[2022-11-03 13:58] LABS: ALBUMIN 3.7 G/DL (3.2-5.2); ALKALINE PHOSPHATASE 64 U/L (46-116); ALT/SGPT 48 U/L (7.0-40); AST/SGOT 26 U/L (<34); BLOOD UREA NITROGEN 15 MG/DL (9-23); CALCIUM LEVEL 9.2 MG/DL (8.3-10.6); CARBON DIOXIDE LEVEL 29 MMOL/L (20-31); CHLORIDE LEVEL 104 MMOL/L (98-107); CHOLESTEROL LEVEL 162 MG/DL (<200); CHOLESTEROL RISK RATIO 3.22 (<5); CREATININE FOR GFR 0.92 MG/DL (0.70-1.30); GLOMERULAR FILTRATION RATE > 60.0 (>35); GLUCOSE, FASTING 100 MG/DL (74-106); HDL CHOLESTEROL 50.3 MG/DL (>40); LDL CHOLESTEROL 95.1 MG/DL (<100); NON-HDL-C 111.7 MG/DL; POTASSIUM SERUM 4.3 MMOL/L (3.5-5.1); SODIUM LEVEL 138 MMOL/L (136-145); TOTAL PROTEIN 6.8 G/DL (5.7-8.2); TRIGLYCERIDES LEVEL 83 MG/DL (<150)
[2022-11-03 14:00] LABS: FREE T4 1.24 NG/DL (0.89-1.76)
[2022-11-03 14:01] LABS: THYROID STIMULATING HORMONE 2.276 uIU/ML (0.55-4.78)
[2022-11-03 14:05] LABS: VITAMIN B12 LEVEL 674 PG/ML (211-911)
[2022-11-03 14:09] LABS: TOTAL 25(OH) VITAMIN D 22.4 NG/ML (20.0-100.0)
[2022-11-03 18:19] LABS: HEMOGLOBIN A1c 5.5 % (4.0-6.0)
== END ==
LOC: M PLALAB 09:32
PROVIDERS: ATTEND Internal Medicine Hematology
DX: E78.00 Pure hypercholesterolemia, unspecified (principal); Z79.899 Other long term (current) drug therapy

== ENCOUNTER → 2023-02-08 | Outpatient (CLI) | payer MEDICARE | LOC: M PLALAB 08:00 | PROVIDERS: ATTEND Urology | DX: C61 Malignant neoplasm of prostate (principal) ==

== ENCOUNTER → 2023-03-13 | Outpatient (CLI) | payer MEDICARE ==
[2023-03-13 14:13] LABS: PROSTATIC SPECIFIC AG MONITOR 17.17 NG/ML (< 4.00)
[2023-03-13 14:15] LABS: BLOOD UREA NITROGEN 15 MG/DL (9-23); CALCIUM LEVEL 9.6 MG/DL (8.3-10.6); CARBON DIOXIDE LEVEL 29 MMOL/L (20-31); CHLORIDE LEVEL 104 MMOL/L (98-107); CREATININE FOR GFR 0.96 MG/DL (0.70-1.30); GLOMERULAR FILTRATION RATE > 60.0 (>35); GLUCOSE, FASTING 89 MG/DL (74-106); POTASSIUM SERUM 4.2 MMOL/L (3.5-5.1); SODIUM LEVEL 139 MMOL/L (136-145)
== END ==
LOC: M PLALAB 10:31
PROVIDERS: ATTEND Urology
DX: C61 Malignant neoplasm of prostate (principal)

== ENCOUNTER → 2023-04-06 | Outpatient (CLI) | payer MEDICARE ==
[~2023-04-06] MED LIST changes: +ISOVUE-370 76% 100ML VIAL As Ordered ONE
== END ==
LOC: M RAD 06:55
PROVIDERS: ATTEND Urology
DX: C61 Malignant neoplasm of prostate (principal)
CPT/HCPCS: 74177; 78306; A9503; Q9967

== ENCOUNTER → 2023-04-14 | Outpatient (CLI) | payer MEDICARE, OTHER ==
[~2023-04-14] MED LIST changes: -ISOVUE-370 76% 100ML VIAL As Ordered ONE
[2023-04-14 11:11] LABS: HEMATOCRIT 48.1 % (42.0-52.0); HEMOGLOBIN 15.9 g/dl (13.5-17.5); MEAN CORPUSCULAR HEMOGLOBIN 31.9 pg (27.0-33.0); MEAN CORPUSCULAR HGB CONC 33.1 g/dl (32.0-36.5); MEAN CORPUSCULAR VOLUME 96.4 fl (80.0-96.0); PLATELET COUNT, AUTOMATED 205 10^3/uL (150-450); RED BLOOD COUNT 4.99 10^6/uL (4.30-6.10); WHITE BLOOD COUNT 9.3 10^3/uL (4.0-10.0)
[2023-04-14 11:27] LABS: HEMOGLOBIN A1c 5.9 % (4.0-6.0)
[2023-04-14 11:34] LABS: CREATININE, URINE 48.1 MG/DL
[2023-04-14 11:35] LABS: C REACTIVE PROTEIN QUANTITATIV < 0.40 MG/DL (<1.0); MAU/CREAT RATIO 10.3 MCG/MG (0.0-30.0)
[2023-04-14 11:37] LABS: ALBUMIN 3.8 G/DL (3.2-5.2); ALKALINE PHOSPHATASE 59 U/L (46-116); ALT/SGPT 33 U/L (7.0-40); AST/SGOT 19 U/L (<34); BLOOD UREA NITROGEN 21 MG/DL (9-23); CARBON DIOXIDE LEVEL 28 MMOL/L (20-31); CHLORIDE LEVEL 103 MMOL/L (98-107); CHOLESTEROL LEVEL 141 MG/DL (<200); CREATININE FOR GFR 0.88 MG/DL (0.70-1.30); GLOMERULAR FILTRATION RATE > 60.0 (>35); GLUCOSE, FASTING 99 MG/DL (74-106); HDL CHOLESTEROL 42.6 MG/DL (>40); LDL CHOLESTEROL 74.2 MG/DL (<100); NON-HDL-C 98.4 MG/DL; POTASSIUM SERUM 4.3 MMOL/L (3.5-5.1); SODIUM LEVEL 136 MMOL/L (136-145); THYROID STIMULATING HORMONE 3.119 uIU/ML (0.55-4.78); TOTAL 25(OH) VITAMIN D 23.7 NG/ML (20.0-100.0); TOTAL PROTEIN 6.9 G/DL (5.7-8.2); TRIGLYCERIDES LEVEL 121 MG/DL (<150); VITAMIN B12 LEVEL 885 PG/ML (211-911)
== END ==
LOC: M PLALAB 08:02
PROVIDERS: ATTEND Internal Medicine Hematology
DX: Z01.818 Encounter for other preprocedural examination (principal); E78.00 Pure hypercholesterolemia, unspecified; Z79.899 Other long term (current) drug therapy; R06.02 Shortness of breath

== ENCOUNTER 2023-04-18 09:07 | Day surgery (SDC) | payer MEDICARE ==
[~2023-04-18] VITALS: Ht 180.3 cm; Wt 113.9 kg
[2023-04-18] MEDS: PROPARACAINE 0.5% OPHTH SOL 15ML OD ONE (09:27)
[2023-04-18] MEDS: OFLOXACIN 0.3 % (OCUFLOX) OPTH SOL 5ML OD SCH (09:28)
[2023-04-18] MEDS: TROPICAMIDE 1% OPHTH SOLN 15ML OD SCH (09:28)
[2023-04-18] MEDS: PHENYLEPHRINE 2.5% OPHTH SOL 2ML OD SCH (09:28)
[2023-04-18] MEDS: ATROPINE SULFATE 1% OPHTH SOLN 2ML BTL OD SCH (09:29)
[2023-04-18] MEDS: LIDOCAINE 1% SDV 5ML VIAL As Ordered ONE (10:04)
[2023-04-18] MEDS: BSS IRR 500ML/OMIDRIA 4ML IRR BAG (OR ONLY) As Ordered ONE (10:04)
[2023-04-18] MEDS: CEFUROXIME 1MG/0.1ML INTRACAMERAL INJ As Ordered ONE (10:04)
[2023-04-18] MEDS: TOBRADEX OPHTH OINT 3.5 GM As Ordered ONE (10:10)
[2023-04-18 10:16] VITALS: BP 157/92; TEMP 98; O2SAT 99
== END 2023-04-18 10:38 | disposition home or self-care (01) ==
LOC: M SDC 09:07
PROVIDERS: ATTEND Ophthalmology
DX: H25.11 Age-related nuclear cataract, right eye (principal); I10 Essential (primary) hypertension; E78.00 Pure hypercholesterolemia, unspecified; J45.909 Unspecified asthma, uncomplicated; Z85.46 Personal history of malignant neoplasm of prostate; Z79.899 Other long term (current) drug therapy; Z79.01 Long term (current) use of anticoagulants; Z79.51 Long term (current) use of inhaled steroids
CPT/HCPCS: 66984; J0697; J1097; V2632

== ENCOUNTER → 2023-04-21 | Outpatient (REF) | payer MEDICARE | LOC: M SMT PRO 11:30 | PROVIDERS: ATTEND Urology | DX: C61 Malignant neoplasm of prostate (principal); R97.20 Elevated prostate specific antigen [PSA]; Z79.899 Other long term (current) drug therapy; Z79.51 Long term (current) use of inhaled steroids; Z87.891 Personal history of nicotine dependence; Z80.1 Family history of malignant neoplasm of trachea, bronchus and lung ==

== ENCOUNTER → 2023-05-03 | Outpatient (CLI) | payer MEDICARE | LOC: M ONCR 08:50 | PROVIDERS: ATTEND General Practice | DX: C61 Malignant neoplasm of prostate (principal); Z79.01 Long term (current) use of anticoagulants; Z79.51 Long term (current) use of inhaled steroids; Z79.899 Other long term (current) drug therapy; Z80.1 Family history of malignant neoplasm of trachea, bronchus and lung; Z87.891 Personal history of nicotine dependence; Z95.5 Presence of coronary angioplasty implant and graft ==

== ENCOUNTER → 2023-06-06 | Outpatient (RCR) | payer MEDICARE ==
[~2023-06-06] MED LIST changes: +FLOM0.4C39 PO
== END ==
LOC: M ONCR 05-12 12:59
PROVIDERS: ATTEND General Practice
DX: Z51.0 Encounter for antineoplastic radiation therapy (principal); C61 Malignant neoplasm of prostate

== ENCOUNTER 2023-07-06 08:59 | Outpatient (RCR) | payer MEDICARE ==
[~2023-07-06 08:59] MED LIST changes: +AZO-95TA3 PO; +MYRB50TA PO
== END 2023-07-07 ==
LOC: M ONCR 08:59
PROVIDERS: ATTEND General Practice
DX: Z51.0 Encounter for antineoplastic radiation therapy (principal); C61 Malignant neoplasm of prostate

== ENCOUNTER → 2023-10-04 | Outpatient (CLI) | payer MEDICARE | LOC: M PLALAB 07:36 | PROVIDERS: ATTEND General Practice | DX: C61 Malignant neoplasm of prostate (principal) ==

== ENCOUNTER → 2023-10-11 | Outpatient (CLI) | payer MEDICARE | LOC: M ONCR 08:58 | PROVIDERS: ATTEND General Practice | DX: C61 Malignant neoplasm of prostate (principal); Z79.818 Long term (current) use of other agents affecting estrogen receptors and estrogen levels; Z87.891 Personal history of nicotine dependence; Z79.01 Long term (current) use of anticoagulants; Z79.51 Long term (current) use of inhaled steroids; Z79.899 Other long term (current) drug therapy; Z92.3 Personal history of irradiation ==

== ENCOUNTER 2023-10-23 11:23 | Day surgery (SDC) | payer MEDICARE ==
[~2023-10-23] VITALS: Ht 180.3 cm; Wt 113.4 kg
[~2023-10-23 11:23] MED LIST changes: +LR 1,000 ML IV SCH
[2023-10-23] MEDS: PHENYLEPHRINE 2.5% OPHTH SOL 2ML OS SCH (12:37)
[2023-10-23] MEDS: FLURBIPROFEN 0.03% OPHTH SOLN 2.5 ML OS SCH (12:37)
[2023-10-23] MEDS: ATROPINE SULFATE 1% OPHTH SOLN 2ML BTL OS SCH (12:37)
[2023-10-23] MEDS: TETRACAINE 0.5% OPHTH SOLN 4ML OS SCH (12:38)
[2023-10-23] MEDS ORDERED: MIDAZOLAM INJ 2MG/2ML VIAL As Ordered ONE (14:19)
[2023-10-23] MEDS: LIDOCAINE 1% SDV 5ML VIAL As Ordered ONE (14:25)
[2023-10-23] MEDS: CEFUROXIME 1MG/0.1ML INTRACAMERAL INJ As Ordered ONE (14:32)
[2023-10-23 14:40] VITALS: BP 127/85; TEMP 97.2; O2SAT 96
== END 2023-10-23 14:56 | disposition home or self-care (01) ==
LOC: M SDC 11:23
PROVIDERS: ATTEND Ophthalmology
DX: H25.12 Age-related nuclear cataract, left eye (principal); I25.10 Atherosclerotic heart disease of native coronary artery without angina pectoris; Z79.899 Other long term (current) drug therapy
CPT/HCPCS: 66984; J0697; J2250; V2632

== ENCOUNTER → 2024-01-11 | Outpatient (CLI) | payer MEDICARE, OTHER ==
[~2024-01-11] MED LIST changes: -CYCL5TAB PO; +CYCL5TAB4 PO; -LR 1,000 ML IV SCH
[2024-01-11 11:43] LABS: BASO % 0.4 % (0.0-1.0); EOS # 0.2 10^3/uL (0.0-0.5); EOS % 1.9 % (0.0-3.0); HEMATOCRIT 44.1 % (42.0-52.0); HEMOGLOBIN 14.4 g/dl (13.5-17.5); LYMPH % 13.5 % (24.0-44.0); MEAN CORPUSCULAR HGB CONC 32.7 g/dl (32.0-36.5); MONO # 1.1 10^3/uL (0.0-0.8); MONO % 14.3 % (2.0-8.0); NEUTROPHILS # 5.4 10^3/uL (1.5-8.5); NEUTROPHILS % 69.5 % (36.0-66.0); PLATELET COUNT, AUTOMATED 182 10^3/uL (150-450); RED BLOOD COUNT 4.64 10^6/uL (4.30-6.10); WHITE BLOOD COUNT 7.7 10^3/uL (4.0-10.0)
[2024-01-11 12:14] LABS: BLOOD UREA NITROGEN 18 MG/DL (9-23); CALCIUM LEVEL 10.4 MG/DL (8.3-10.6); CARBON DIOXIDE LEVEL 29 MMOL/L (20-31); CHLORIDE LEVEL 103 MMOL/L (98-107); CREATININE FOR GFR 0.88 MG/DL (0.70-1.30); GLOMERULAR FILTRATION RATE > 60.0 (>35); GLUCOSE, FASTING 77 MG/DL (74-106); POTASSIUM SERUM 4.3 MMOL/L (3.5-5.1); SODIUM LEVEL 140 MMOL/L (136-145)
== END ==
LOC: M WUC 10:18
PROVIDERS: ATTEND Internal Medicine Cardiovascular Disease
DX: I48.19 Other persistent atrial fibrillation (principal); I25.119 Atherosclerotic heart disease of native coronary artery with unspecified angina pectoris

== ENCOUNTER 2024-01-19 12:05 | Inpatient (IN) | payer MEDICARE, OTHER ==
[~2024-01-19] VITALS: Ht 180.3 cm; Wt 108.9 kg
[2024-01-19 13:33] LABS: KETONE, URINE AUTO RFX NEGATIVE (NEGATIVE); LEUKOCYTE ESTERASE UR AUTO RFX NEGATIVE (NEGATIVE)
[2024-01-19 13:35] LABS: BASO % 0.6 % (0.0-1.0); EOS # 0.2 10^3/uL (0.0-0.5); EOS % 2.1 % (0.0-3.0); HEMATOCRIT 28.1 % (42.0-52.0); HEMOGLOBIN 9.2 g/dl (13.5-17.5); LYMPH # 0.6 10^3/uL (1.5-5.0); LYMPH % 7.9 % (24.0-44.0); MEAN CORPUSCULAR HEMOGLOBIN 33.5 pg (27.0-33.0); MEAN CORPUSCULAR HGB CONC 32.7 g/dl (32.0-36.5); MEAN CORPUSCULAR VOLUME 102.2 fl (80.0-96.0); MONO # 0.5 10^3/uL (0.0-0.8); NEUTROPHILS # 5.9 10^3/uL (1.5-8.5); NEUTROPHILS % 81.7 % (36.0-66.0); PLATELET COUNT, AUTOMATED 147 10^3/uL (150-450); RED BLOOD COUNT 2.75 10^6/uL (4.30-6.10); WHITE BLOOD COUNT 7.2 10^3/uL (4.0-10.0)
[2024-01-19 13:48] LABS: INR 1.23; PARTIAL THROMBOPLASTIN TIME 24.8 SECONDS (24.8-34.2); PROTHROMBIN TIME 15.8 SECONDS (12.5-14.5)
[2024-01-19 13:57] LABS: ALBUMIN 3.6 G/DL (3.2-5.2); BILIRUBIN,DIRECT 0.6 MG/DL (<0.4); BILIRUBIN,TOTAL 6.6 MG/DL (0.3-1.2); TOTAL PROTEIN 6.9 G/DL (5.7-8.2)
[2024-01-19] MEDS ORDERED: ISOVUE-370 76% 100ML VIAL As Ordered ONE (14:18)
[2024-01-19 17:03] LABS: PERCENT SATURATION 91.8 % (19.7-50.0)
[2024-01-19 17:05] LABS: FERRITIN 1253.9 NG/ML (10.5-307.3)
[2024-01-19 17:10] LABS: FOLATE 16.44 NG/ML (>5.4)
[2024-01-19] MEDS: NS (Normal Saline) 0.9% 1,000 ML IV ONE (17:15)
[2024-01-19 17:17] LABS: HEPATITIS B SURFACE ANTIGEN NEGATIVE (NEGATIVE)
[2024-01-19 17:37] LABS: HEPATITIS C VIRUS ABY INDEX 0.02 INDEX (<0.8)
[2024-01-19 17:38] LABS: HEPATITIS B CORE ANTIBODY IGM NEGATIVE (NEGATIVE)
[2024-01-19 18:00] VITALS: BP 120/80; TEMP 97.7; O2SAT 99
[2024-01-19 18:00] LABS: BLOOD UREA NITROGEN 41 MG/DL (9-23); CALCIUM LEVEL 9.3 MG/DL (8.3-10.6); CARBON DIOXIDE LEVEL 24 MMOL/L (20-31); CHLORIDE LEVEL 107 MMOL/L (98-107); CREATININE FOR GFR 0.99 MG/DL (0.70-1.30); GLOMERULAR FILTRATION RATE > 60.0 (>35); GLUCOSE, FASTING 105 MG/DL (74-106); POTASSIUM SERUM 4.4 MMOL/L (3.5-5.1); SODIUM LEVEL 138 MMOL/L (136-145)
[2024-01-19] MEDS ORDERED: METO1TAB7 PO (18:03)
[2024-01-19] MEDS ORDERED: ELIQ5TAB PO (18:03)
[2024-01-19] MEDS ORDERED: HOME MED LIST COMPLETE! XX SCH (18:05)
[2024-01-19 18:08] LABS: D-DIMER QUANT 1.91 ug/mL (<0.5); INR 1.31; PARTIAL THROMBOPLASTIN TIME 28.8 SECONDS (24.8-34.2); PROTHROMBIN TIME 16.5 SECONDS (12.5-14.5)
[2024-01-19] MEDS ORDERED: SENOKOT S TAB PO PRN (18:10)
[2024-01-19] MEDS ORDERED: MOM 30ML SUSPENSION UDC PO PRN (18:10)
[2024-01-19] MEDS ORDERED: NALOXONE INJ 0.4MG/1ML VIAL IV PRN (18:10)
[2024-01-19] MEDS ORDERED: ACETAMINOPHEN 325 MG TAB PO PRN (18:10)
[2024-01-19] MEDS ORDERED: PILL CUTTER 1 EACH XX PRN (18:20)
[2024-01-19] MEDS ORDERED: AMLO1TAB24 PO (18:40)
[2024-01-19 19:50] VITALS: BP 140/59; TEMP 97.5; O2SAT 98
[2024-01-19] MEDS: METOPROLOL TART 25 MG TABLET PO ONE (19:51)
[2024-01-19] MEDS: oxyCODONE 5MG TAB PO ONE (19:51)
[2024-01-19] MEDS: LIDOCAINE 5% (LIDODERM) PATCH TD SCH (21:00)
[2024-01-20 04:51] VITALS: BP 134/61; TEMP 98.6; O2SAT 97
[2024-01-20] MEDS ORDERED: MYRBETRIQ 50 MG PO SCH (09:00)
[2024-01-20 09:11] LABS: HEMATOCRIT 24.6 % (42.0-52.0); HEMOGLOBIN 7.9 g/dl (13.5-17.5); MEAN CORPUSCULAR HEMOGLOBIN 33.5 pg (27.0-33.0); MEAN CORPUSCULAR HGB CONC 32.1 g/dl (32.0-36.5); MEAN CORPUSCULAR VOLUME 104.2 fl (80.0-96.0); PLATELET COUNT, AUTOMATED 152 10^3/uL (150-450); RED BLOOD COUNT 2.36 10^6/uL (4.30-6.10); WHITE BLOOD COUNT 6.2 10^3/uL (4.0-10.0)
[2024-01-20] MEDS: LOSARTAN 50MG TABLET PO SCH (09:32)
[2024-01-20] MEDS: ATORVASTATIN 20 MG TAB PO SCH (09:32)
[2024-01-20 09:33] LABS: ALBUMIN 3.4 G/DL (3.2-5.2); ALKALINE PHOSPHATASE 69 U/L (40-129); ALT/SGPT 41 U/L (7.0-40); AST/SGOT 70 U/L (<34); BILIRUBIN,TOTAL 6.4 MG/DL (0.3-1.2); BLOOD UREA NITROGEN 28 MG/DL (9-23); CALCIUM LEVEL 9.9 MG/DL (8.3-10.6); CARBON DIOXIDE LEVEL 27 MMOL/L (20-31); CHLORIDE LEVEL 104 MMOL/L (98-107); GLOMERULAR FILTRATION RATE > 60.0 (>35); GLUCOSE, FASTING 136 MG/DL (74-106); POTASSIUM SERUM 4.3 MMOL/L (3.5-5.1); SODIUM LEVEL 140 MMOL/L (136-145); TOTAL PROTEIN 6.8 G/DL (5.7-8.2)
[2024-01-20] MEDS: METOPROLOL SUCC (TopROL XL) 50MG **XL** TAB PO SCH (09:33)
[2024-01-20 10:24] LABS: BASOPHILS 2 % (0-1); EOSINOPHILS 4 % (0-3); LYMPHOCYTES 2 % (16-44); MONOCYTES 4 % (0-5); NEUTROPHILS 86 % (28-66)
[2024-01-20 10:27] LABS: PLATELET ESTIMATE NORMAL (NORMAL); POLYCHROMASIA 1+
[2024-01-20] MEDS: SENOKOT S TAB PO ONE (11:35)
[2024-01-20] MEDS: MOM 30ML SUSPENSION UDC PO ONE (11:35)
[2024-01-20 12:57] VITALS: BP 114/41; TEMP 98.1; O2SAT 97
[2024-01-20 13:52] LABS: HEMATOCRIT 28.1 % (42.0-52.0)
[2024-01-20] MEDS: methylPREDNISolone 40MG 1ML VIAL IV SCH (15:16)
[2024-01-20] MEDS ORDERED: ALBUTEROL 90 MCG/ACT 8GM HFA INHALER INH PRN (19:45)
[2024-01-20 21:41] VITALS: BP 132/73; TEMP 97.9; O2SAT 97
[2024-01-20] MEDS: APIXABAN 5 MG TAB (ELIQUIS) PO SCH (21:50)
[2024-01-21] VITALS (10 sets, daily range): BP systolic 98–145; BP diastolic 48–73; TEMP 97.3–97.9; O2SAT 96–100
[2024-01-21 06:52] LABS: HEMATOCRIT 21.8 % (42.0-52.0); MEAN CORPUSCULAR HEMOGLOBIN 33.3 pg (27.0-33.0); MEAN CORPUSCULAR HGB CONC 31.2 g/dl (32.0-36.5); MEAN CORPUSCULAR VOLUME 106.9 fl (80.0-96.0); PLATELET COUNT, AUTOMATED 173 10^3/uL (150-450); RED BLOOD COUNT 2.04 10^6/uL (4.30-6.10); WHITE BLOOD COUNT 13.5 10^3/uL (4.0-10.0)
[2024-01-21 06:56] LABS: HEMOGLOBIN 6.8 g/dl (13.5-17.5)
[2024-01-21 07:16] LABS: ALBUMIN 3.4 G/DL (3.2-5.2); ALKALINE PHOSPHATASE 71 U/L (40-129); ALT/SGPT 41 U/L (7.0-40); AST/SGOT 63 U/L (<34); BILIRUBIN,TOTAL 5.6 MG/DL (0.3-1.2); BLOOD UREA NITROGEN 30 MG/DL (9-23); CALCIUM LEVEL 10.1 MG/DL (8.3-10.6); CARBON DIOXIDE LEVEL 25 MMOL/L (20-31); CHLORIDE LEVEL 105 MMOL/L (98-107); GLOMERULAR FILTRATION RATE > 60.0 (>35); GLUCOSE, FASTING 167 MG/DL (74-106); POTASSIUM SERUM 4.5 MMOL/L (3.5-5.1); SODIUM LEVEL 140 MMOL/L (136-145); TOTAL PROTEIN 6.9 G/DL (5.7-8.2)
[2024-01-21] MEDS: diphenhydrAMINE 25MG CAP PO ONE (14:17)
[2024-01-21] MEDS: ACETAMINOPHEN 500 MG TAB PO ONE (14:21)
[2024-01-21] MEDS: MIDODRINE 5 MG TAB PO ONE (16:58)
[2024-01-21] MEDS: NS 500 ML IV ONE (16:58)
[2024-01-21 18:05] LABS: HEMATOCRIT 23.3 % (42.0-52.0); HEMOGLOBIN 7.3 g/dl (13.5-17.5)
[2024-01-22] VITALS (12 sets, daily range): BP systolic 105–144; BP diastolic 48–84; TEMP 97.1–99; O2SAT 96–98
[2024-01-22 05:13] LABS: MEAN CORPUSCULAR HEMOGLOBIN 33.9 pg (27.0-33.0); MEAN CORPUSCULAR VOLUME 105.9 fl (80.0-96.0); PLATELET COUNT, AUTOMATED 187 10^3/uL (150-450); RED BLOOD COUNT 1.86 10^6/uL (4.30-6.10); WHITE BLOOD COUNT 18.2 10^3/uL (4.0-10.0)
[2024-01-22 05:17] LABS: HEMATOCRIT 19.7 % (42.0-52.0)
[2024-01-22 05:18] LABS: HEMOGLOBIN 6.3 g/dl (13.5-17.5)
[2024-01-22 05:50] LABS: ALBUMIN 3.1 G/DL (3.2-5.2); ALKALINE PHOSPHATASE 62 U/L (40-129); ALT/SGPT 37 U/L (7.0-40); AST/SGOT 49 U/L (<34); BILIRUBIN,TOTAL 4.6 MG/DL (0.3-1.2); BLOOD UREA NITROGEN 42 MG/DL (9-23); CALCIUM LEVEL 9.6 MG/DL (8.3-10.6); CARBON DIOXIDE LEVEL 24 MMOL/L (20-31); CHLORIDE LEVEL 109 MMOL/L (98-107); CREATININE FOR GFR 0.87 MG/DL (0.70-1.30); GLOMERULAR FILTRATION RATE > 60.0 (>35); GLUCOSE, FASTING 145 MG/DL (74-106); POTASSIUM SERUM 4.7 MMOL/L (3.5-5.1); SODIUM LEVEL 141 MMOL/L (136-145); TOTAL PROTEIN 6.3 G/DL (5.7-8.2)
[2024-01-22 19:10] LABS: HEMATOCRIT 25.6 % (42.0-52.0); HEMOGLOBIN 8.4 g/dl (13.5-17.5)
[2024-01-23] MEDS: NS 500 ML IV ONE ×2 (01:48→05:28)
[2024-01-23 04:12] VITALS: BP_SYST 133; BP_SYST 233; BP_DIAS 18; BP_DIAS 82; TEMP 97.5; O2SAT 96
[2024-01-23 04:35] LABS: HEMATOCRIT 22.3 % (42.0-52.0); HEMOGLOBIN 7.2 g/dl (13.5-17.5); MEAN CORPUSCULAR HEMOGLOBIN 32.7 pg (27.0-33.0); MEAN CORPUSCULAR HGB CONC 32.3 g/dl (32.0-36.5); MEAN CORPUSCULAR VOLUME 101.4 fl (80.0-96.0); PLATELET COUNT, AUTOMATED 165 10^3/uL (150-450)
[2024-01-23 05:03] LABS: ALBUMIN 3.1 G/DL (3.2-5.2); ALKALINE PHOSPHATASE 61 U/L (40-129); ALT/SGPT 36 U/L (7.0-40); AST/SGOT 42 U/L (<34); BILIRUBIN,TOTAL 4.7 MG/DL (0.3-1.2); BLOOD UREA NITROGEN 40 MG/DL (9-23); CALCIUM LEVEL 9.2 MG/DL (8.3-10.6); CARBON DIOXIDE LEVEL 23 MMOL/L (20-31); CHLORIDE LEVEL 109 MMOL/L (98-107); CREATININE FOR GFR 0.75 MG/DL (0.70-1.30); GLOMERULAR FILTRATION RATE > 60.0 (>35); GLUCOSE, FASTING 150 MG/DL (74-106); POTASSIUM SERUM 4.7 MMOL/L (3.5-5.1); SODIUM LEVEL 139 MMOL/L (136-145); TOTAL PROTEIN 6.3 G/DL (5.7-8.2)
[2024-01-23 09:46] LABS: LDH LACTATE DEHYDROGENASE 614 U/L (120-246)
[2024-01-23 12:00] VITALS: BP 118/68; TEMP 98.1; O2SAT 98
[2024-01-23] MEDS: predniSONE 20 MG TAB PO SCH (15:16)
[2024-01-23 20:00] VITALS: BP 110/66; TEMP 97.5; O2SAT 98
[2024-01-24] VITALS (7 sets, daily range): BP systolic 108–139; BP diastolic 60–80; TEMP 97.5–98.1; O2SAT 96–99
[2024-01-24 07:59] LABS: HEMATOCRIT 21.8 % (42.0-52.0); MEAN CORPUSCULAR HEMOGLOBIN 32.7 pg (27.0-33.0); MEAN CORPUSCULAR HGB CONC 31.7 g/dl (32.0-36.5); MEAN CORPUSCULAR VOLUME 103.3 fl (80.0-96.0); PLATELET COUNT, AUTOMATED 156 10^3/uL (150-450); RED BLOOD COUNT 2.11 10^6/uL (4.30-6.10); WHITE BLOOD COUNT 10.1 10^3/uL (4.0-10.0)
[2024-01-24 08:05] LABS: LDH LACTATE DEHYDROGENASE 580 U/L (120-246)
[2024-01-24 08:09] LABS: ALKALINE PHOSPHATASE 61 U/L (40-129); ALT/SGPT 31 U/L (7.0-40); AST/SGOT 34 U/L (<34); BLOOD UREA NITROGEN 37 MG/DL (9-23); CALCIUM LEVEL 9.2 MG/DL (8.3-10.6); CARBON DIOXIDE LEVEL 26 MMOL/L (20-31); CHLORIDE LEVEL 107 MMOL/L (98-107); CREATININE FOR GFR 0.84 MG/DL (0.70-1.30); GLOMERULAR FILTRATION RATE > 60.0 (>35); GLUCOSE, FASTING 104 MG/DL (74-106); POTASSIUM SERUM 4.5 MMOL/L (3.5-5.1); SODIUM LEVEL 142 MMOL/L (136-145); TOTAL PROTEIN 5.8 G/DL (5.7-8.2)
[2024-01-24 08:11] LABS: HEMOGLOBIN 6.9 g/dl (13.5-17.5)
[2024-01-24] MEDS ORDERED: LIDOCAINE 1% MDV 20ML VIAL As Ordered ONE (08:29)
[2024-01-24 08:55] LABS: LYMPHOCYTES 4 % (16-44); MONOCYTES 3 % (0-5); NEUTROPHILS 91 % (28-66)
[2024-01-24 08:56] LABS: PLATELET ESTIMATE NORMAL (NORMAL); POLYCHROMASIA 1+
[2024-01-24 18:27] LABS: HEMATOCRIT 25.6 % (42.0-52.0); HEMOGLOBIN 8.2 g/dl (13.5-17.5)
[2024-01-24 19:12] LABS: HEMOGLOBINOPATHY EVAL HCT 27.5 % (38.5-50.0); HEMOGLOBINOPATHY EVAL HGB 8.7 g/dL (13.2-17.1); HEMOGLOBINOPATHY EVAL HGB A 97.1 % (>96.0); HEMOGLOBINOPATHY EVAL HGB A2 2.9 % (2.0-3.2); HEMOGLOBINOPATHY EVAL MCH 32.6 pg (27.0-33.0); HEMOGLOBINOPATHY EVAL RBC 2.67 Mill/uL (4.20-5.80); HEMOGLOBINOPATHY EVAL RDW 11.3 % (11.0-15.0)
[2024-01-25 03:20] VITALS: BP 119/78; TEMP 97.5; O2SAT 97
[2024-01-25 05:51] LABS: BASO % 0.1 % (0.0-1.0); EOS % 0.1 % (0.0-3.0); HEMATOCRIT 22.9 % (42.0-52.0); HEMOGLOBIN 7.5 g/dl (13.5-17.5); LYMPH # 0.5 10^3/uL (1.5-5.0); LYMPH % 6.4 % (24.0-44.0); MEAN CORPUSCULAR HEMOGLOBIN 33.6 pg (27.0-33.0); MEAN CORPUSCULAR HGB CONC 32.8 g/dl (32.0-36.5); MEAN CORPUSCULAR VOLUME 102.7 fl (80.0-96.0); MONO # 0.6 10^3/uL (0.0-0.8); MONO % 7.6 % (2.0-8.0); NEUTROPHILS % 80.8 % (36.0-66.0); PLATELET COUNT, AUTOMATED 115 10^3/uL (150-450); RED BLOOD COUNT 2.23 10^6/uL (4.30-6.10); WHITE BLOOD COUNT 7.4 10^3/uL (4.0-10.0)
[2024-01-25 06:17] LABS: LDH LACTATE DEHYDROGENASE 620 U/L (120-246)
[2024-01-25 06:18] LABS: ALBUMIN 2.9 G/DL (3.2-5.2); ALKALINE PHOSPHATASE 60 U/L (40-129); ALT/SGPT 30 U/L (7.0-40); AST/SGOT 38 U/L (<34); BILIRUBIN,TOTAL 4.4 MG/DL (0.3-1.2); BLOOD UREA NITROGEN 37 MG/DL (9-23); CALCIUM LEVEL 8.7 MG/DL (8.3-10.6); CARBON DIOXIDE LEVEL 27 MMOL/L (20-31); CHLORIDE LEVEL 106 MMOL/L (98-107); CREATININE FOR GFR 0.88 MG/DL (0.70-1.30); GLOMERULAR FILTRATION RATE > 60.0 (>35); GLUCOSE, FASTING 96 MG/DL (74-106); POTASSIUM SERUM 4.4 MMOL/L (3.5-5.1); SODIUM LEVEL 141 MMOL/L (136-145); TOTAL PROTEIN 5.9 G/DL (5.7-8.2)
[2024-01-25] MEDS: FOLIC ACID 1MG TAB PO SCH (08:04)
[2024-01-25 12:00] VITALS: BP 133/74; TEMP 97.9; O2SAT 99
[2024-01-25] MEDS: METOPROLOL TART 25 MG TABLET PO SCH (14:10)
[2024-01-25 19:40] VITALS: BP 110/61; TEMP 97.5; O2SAT 97
[2024-01-25] MEDS: ENOXAPARIN 120MG/0.8ML SYRINGE SC SCH (21:22)
[2024-01-26] VITALS (15 sets, daily range): BP systolic 102–136; BP diastolic 68–82; TEMP 96.6–98.4; O2SAT 95–98
[2024-01-26 05:05] LABS: BASO % 0.2 % (0.0-1.0); EOS % 0.4 % (0.0-3.0); HEMATOCRIT 23.5 % (42.0-52.0); HEMOGLOBIN 7.4 g/dl (13.5-17.5); LYMPH # 0.7 10^3/uL (1.5-5.0); LYMPH % 7.6 % (24.0-44.0); MEAN CORPUSCULAR HGB CONC 31.5 g/dl (32.0-36.5); MEAN CORPUSCULAR VOLUME 104.9 fl (80.0-96.0); MONO # 0.7 10^3/uL (0.0-0.8); MONO % 7.9 % (2.0-8.0); NEUTROPHILS # 7.1 10^3/uL (1.5-8.5); NEUTROPHILS % 79.4 % (36.0-66.0); PLATELET COUNT, AUTOMATED 121 10^3/uL (150-450); RED BLOOD COUNT 2.24 10^6/uL (4.30-6.10); WHITE BLOOD COUNT 8.9 10^3/uL (4.0-10.0)
[2024-01-26 05:36] LABS: ALKALINE PHOSPHATASE 63 U/L (40-129); ALT/SGPT 30 U/L (7.0-40); AST/SGOT 34 U/L (<34); BILIRUBIN,TOTAL 2.6 MG/DL (0.3-1.2); BLOOD UREA NITROGEN 45 MG/DL (9-23); CARBON DIOXIDE LEVEL 23 MMOL/L (20-31); CHLORIDE LEVEL 108 MMOL/L (98-107); CREATININE FOR GFR 1.08 MG/DL (0.70-1.30); GLOMERULAR FILTRATION RATE > 60.0 (>35); GLUCOSE, FASTING 97 MG/DL (74-106); POTASSIUM SERUM 4.3 MMOL/L (3.5-5.1); SODIUM LEVEL 142 MMOL/L (136-145); TOTAL PROTEIN 6.3 G/DL (5.7-8.2)
[2024-01-26] MEDS ORDERED: EPINEPHrine INJ 1 MG/ML 1ML AMP IM PRN (07:01)
[2024-01-26] MEDS ORDERED: methylPREDNISolone 125MG 2ML VIAL IV PRN (07:01)
[2024-01-26] MEDS ORDERED: ALBUTEROL SULFATE 2.5MG/0.5ML INH NEB SOLN INH PRN (07:01)
[2024-01-26] MEDS ORDERED: diphenhydrAMINE 50MG/ML VIAL IV PRN (07:01)
[2024-01-26] MEDS ORDERED: FAMOTIDINE 20MG/2ML VIAL IV PRN (10:45)
[2024-01-26] MEDS: ACETAMINOPHEN 650 MG PO PO ONE (12:20)
[2024-01-26] MEDS: diphenhydrAMINE 25 MG IV IV ONE (12:21)
[2024-01-26] MEDS: RITUXIMAB PVVR IV ONE (12:40)
[2024-01-26] MEDS: NS B BRAUN IV ONE (12:40)
[2024-01-26] MEDS: NS (Normal Saline) 0.9% 1,000 ML IV PRN (15:05)
[2024-01-26] MEDS: FAMOTIDINE 20MG/2ML VIAL IV STA (15:22)
[2024-01-26] MEDS: diphenhydrAMINE 50MG/ML VIAL IV STA (15:23)
[2024-01-26] MEDS: oxyCODONE 5MG TAB PO PRN (21:20)
[2024-01-27] VITALS (12 sets, daily range): BP systolic 104–157; BP diastolic 50–70; TEMP 97.2–98.1; O2SAT 18–100
[2024-01-27 06:07] LABS: BASO % 0.1 % (0.0-1.0); EOS # 0.1 10^3/uL (0.0-0.5); EOS % 0.7 % (0.0-3.0); HEMATOCRIT 21.6 % (42.0-52.0); LYMPH # 0.4 10^3/uL (1.5-5.0); LYMPH % 5.9 % (24.0-44.0); MEAN CORPUSCULAR HGB CONC 31.5 g/dl (32.0-36.5); MONO # 0.6 10^3/uL (0.0-0.8); MONO % 8.6 % (2.0-8.0); NEUTROPHILS # 5.7 10^3/uL (1.5-8.5); NEUTROPHILS % 80.7 % (36.0-66.0); PLATELET COUNT, AUTOMATED 101 10^3/uL (150-450); WHITE BLOOD COUNT 7.1 10^3/uL (4.0-10.0)
[2024-01-27 06:13] LABS: HEMOGLOBIN 6.8 g/dl (13.5-17.5)
[2024-01-27 07:23] LABS: ALBUMIN 2.8 G/DL (3.2-5.2); ALKALINE PHOSPHATASE 56 U/L (40-129); ALT/SGPT 27 U/L (7.0-40); AST/SGOT 30 U/L (<34); BILIRUBIN,TOTAL 1.9 MG/DL (0.3-1.2); BLOOD UREA NITROGEN 36 MG/DL (9-23); CALCIUM LEVEL 8.5 MG/DL (8.3-10.6); CARBON DIOXIDE LEVEL 25 MMOL/L (20-31); CHLORIDE LEVEL 109 MMOL/L (98-107); CREATININE FOR GFR 1.08 MG/DL (0.70-1.30); GLOMERULAR FILTRATION RATE > 60.0 (>35); GLUCOSE, FASTING 94 MG/DL (74-106); POTASSIUM SERUM 4.3 MMOL/L (3.5-5.1); SODIUM LEVEL 142 MMOL/L (136-145); TOTAL PROTEIN 5.7 G/DL (5.7-8.2)
[2024-01-27 08:02] LABS: LDH LACTATE DEHYDROGENASE 528 U/L (120-246)
[2024-01-27] MEDS: FUROSEMIDE 40MG/4ML VIAL IV ONE (08:06)
[2024-01-27] MEDS: METOPROLOL TART 25 MG TABLET PO SCH (12:27)
[2024-01-27 21:39] LABS: BASO % 0.2 % (0.0-1.0); EOS % 0.1 % (0.0-3.0); LYMPH # 0.3 10^3/uL (1.5-5.0); MEAN CORPUSCULAR HEMOGLOBIN 32.8 pg (27.0-33.0); MEAN CORPUSCULAR HGB CONC 32.6 g/dl (32.0-36.5); MEAN CORPUSCULAR VOLUME 100.7 fl (80.0-96.0); MONO # 0.8 10^3/uL (0.0-0.8); MONO % 9.7 % (2.0-8.0); NEUTROPHILS # 7.1 10^3/uL (1.5-8.5); NEUTROPHILS % 83.8 % (36.0-66.0); PLATELET COUNT, AUTOMATED 113 10^3/uL (150-450); RED BLOOD COUNT 2.74 10^6/uL (4.30-6.10); WHITE BLOOD COUNT 8.5 10^3/uL (4.0-10.0)
[2024-01-27 21:41] LABS: HEMATOCRIT 27.6 % (42.0-52.0)
[2024-01-28 04:03] VITALS: BP 142/74; TEMP 98.1; O2SAT 97
[2024-01-28 07:43] LABS: BASO % 0.1 % (0.0-1.0); EOS % 0.5 % (0.0-3.0); HEMATOCRIT 28.8 % (42.0-52.0); HEMOGLOBIN 9.1 g/dl (13.5-17.5); LYMPH # 0.4 10^3/uL (1.5-5.0); LYMPH % 5.9 % (24.0-44.0); MEAN CORPUSCULAR HEMOGLOBIN 32.6 pg (27.0-33.0); MEAN CORPUSCULAR HGB CONC 31.6 g/dl (32.0-36.5); MEAN CORPUSCULAR VOLUME 103.2 fl (80.0-96.0); MONO # 0.7 10^3/uL (0.0-0.8); MONO % 9.7 % (2.0-8.0); NEUTROPHILS # 6.1 10^3/uL (1.5-8.5); NEUTROPHILS % 81.3 % (36.0-66.0); RED BLOOD COUNT 2.79 10^6/uL (4.30-6.10); WHITE BLOOD COUNT 7.5 10^3/uL (4.0-10.0)
[2024-01-28 07:44] LABS: LDH LACTATE DEHYDROGENASE 517 U/L (120-246)
[2024-01-28 07:46] LABS: PLATELET COUNT, AUTOMATED 98 10^3/uL (150-450)
[2024-01-28 07:57] LABS: ALBUMIN 2.8 G/DL (3.2-5.2); ALKALINE PHOSPHATASE 57 U/L (40-129); ALT/SGPT 26 U/L (7.0-40); AST/SGOT 27 U/L (<34); BILIRUBIN,TOTAL 2.2 MG/DL (0.3-1.2); BLOOD UREA NITROGEN 35 MG/DL (9-23); CALCIUM LEVEL 8.8 MG/DL (8.3-10.6); CARBON DIOXIDE LEVEL 27 MMOL/L (20-31); CHLORIDE LEVEL 108 MMOL/L (98-107); CREATININE FOR GFR 1.02 MG/DL (0.70-1.30); GLOMERULAR FILTRATION RATE > 60.0 (>35); GLUCOSE, FASTING 98 MG/DL (74-106); POTASSIUM SERUM 4.4 MMOL/L (3.5-5.1); SODIUM LEVEL 142 MMOL/L (136-145); TOTAL PROTEIN 5.8 G/DL (5.7-8.2)
[2024-01-28 12:00] VITALS: BP 126/65; TEMP 98.1; O2SAT 99
[2024-01-28 20:35] VITALS: BP 128/58; TEMP 97.7; O2SAT 98
[2024-01-29 04:22] VITALS: BP 135/76; TEMP 97.5; O2SAT 99
[2024-01-29 05:30] LABS: BASO % 0.2 % (0.0-1.0); EOS % 0.3 % (0.0-3.0); HEMATOCRIT 28.4 % (42.0-52.0); LYMPH # 0.3 10^3/uL (1.5-5.0); LYMPH % 5.1 % (24.0-44.0); MEAN CORPUSCULAR HEMOGLOBIN 33.3 pg (27.0-33.0); MEAN CORPUSCULAR HGB CONC 31.7 g/dl (32.0-36.5); MEAN CORPUSCULAR VOLUME 105.2 fl (80.0-96.0); MONO # 0.6 10^3/uL (0.0-0.8); MONO % 9.1 % (2.0-8.0); NEUTROPHILS # 5.5 10^3/uL (1.5-8.5); NEUTROPHILS % 82.4 % (36.0-66.0); WHITE BLOOD COUNT 6.6 10^3/uL (4.0-10.0)
[2024-01-29 05:33] LABS: PLATELET COUNT, AUTOMATED 67 10^3/uL (150-450)
[2024-01-29 05:40] LABS: ALBUMIN 2.8 G/DL (3.2-5.2); ALKALINE PHOSPHATASE 51 U/L (40-129); ALT/SGPT 45 U/L (7.0-40); AST/SGOT 49 U/L (<34); BILIRUBIN,TOTAL 1.7 MG/DL (0.3-1.2); BLOOD UREA NITROGEN 29 MG/DL (9-23); CALCIUM LEVEL 8.5 MG/DL (8.3-10.6); CARBON DIOXIDE LEVEL 22 MMOL/L (20-31); CHLORIDE LEVEL 109 MMOL/L (98-107); CREATININE FOR GFR 0.89 MG/DL (0.70-1.30); GLOMERULAR FILTRATION RATE > 60.0 (>35); GLUCOSE, FASTING 91 MG/DL (74-106); POTASSIUM SERUM 4.8 MMOL/L (3.5-5.1); SODIUM LEVEL 140 MMOL/L (136-145); TOTAL PROTEIN 5.5 G/DL (5.7-8.2)
[2024-01-29] MEDS ORDERED: METO50TA7 PO (10:55)
[2024-01-29] MEDS ORDERED: BACT800T5 PO (10:55)
[2024-01-29] MEDS ORDERED: ELIQ2.5T PO (10:55)
[2024-01-29] MEDS ORDERED: PRED20TA PO (10:55)
[2024-01-29] MEDS ORDERED: FOLI1TAB11 PO (10:55)
[2024-01-29 12:19] VITALS: BP 137/61
[2024-02-01] MEDS ORDERED: [UNRECOGNIZED DRUG - CODE] PO (11:15)
== END 2024-01-29 12:44 | disposition home or self-care (01) | DRG 809 ==
LOC: M ED 12:05 → M ED INP 16:32 → M MSPAV 17:57
PROVIDERS: ADMIT General Practice; ATTEND Internal Medicine
PROC: 30233N1 Transfusion of Nonautologous Red Blood Cells into Peripheral Vein, Percutaneous Approach (ICD-10-PCS; 2024-01-22)
PROC: B246ZZZ Ultrasonography of Right and Left Heart (ICD-10-PCS; 2024-01-24)
PROC: 07DR3ZX Extraction of Iliac Bone Marrow, Percutaneous Approach, Diagnostic (ICD-10-PCS; principal; 2024-01-24 09:00)
DX: D59.19 Other autoimmune hemolytic anemia (principal); I48.21 Permanent atrial fibrillation; J98.11 Atelectasis; E87.20 Acidosis, unspecified; R17 Unspecified jaundice; I25.10 Atherosclerotic heart disease of native coronary artery without angina pectoris; I10 Essential (primary) hypertension; E78.5 Hyperlipidemia, unspecified; G47.33 Obstructive sleep apnea (adult) (pediatric); K21.9 Gastro-esophageal reflux disease without esophagitis; G25.0 Essential tremor; G89.29 Other chronic pain; M54.2 Cervicalgia; J47.9 Bronchiectasis, uncomplicated; E66.9 Obesity, unspecified; Z68.34 Body mass index [BMI] 34.0-34.9, adult; R10.32 Left lower quadrant pain; M51.35 Other intervertebral disc degeneration, thoracolumbar region; M85.88 Other specified disorders of bone density and structure, other site; D69.6 Thrombocytopenia, unspecified; Z79.01 Long term (current) use of anticoagulants; Z79.899 Other long term (current) drug therapy; Z85.46 Personal history of malignant neoplasm of prostate; Z92.3 Personal history of irradiation; Z95.5 Presence of coronary angioplasty implant and graft; Z87.891 Personal history of nicotine dependence

== ENCOUNTER → 2024-04-09 | Outpatient (CLI) | payer MEDICARE ==
[~2024-04-09] MED LIST changes: +AMLO1TAB24 PO; +BACT800T5 PO; +ELIQ2.5T PO; +FOLI1TAB11 PO; +LOSA100T8; +METO50TA7 PO; +[UNRECOGNIZED DRUG - CODE] PO
== END ==
LOC: M ONCR 08:20
PROVIDERS: ATTEND General Practice
DX: C61 Malignant neoplasm of prostate (principal); D46.1 Refractory anemia with ring sideroblasts; Z77.098 Contact with and (suspected) exposure to other hazardous, chiefly nonmedicinal, chemicals; Z79.818 Long term (current) use of other agents affecting estrogen receptors and estrogen levels; Z79.01 Long term (current) use of anticoagulants; Z79.899 Other long term (current) drug therapy; Z91.82 Personal history of military deployment; Z92.3 Personal history of irradiation

== ENCOUNTER → 2024-04-24 | Outpatient (REF) | payer MEDICARE ==
[2024-04-24 10:42] LABS: BASO % 0.3 % (0.0-1.0); EOS # 0.2 10^3/uL (0.0-0.5); EOS % 2.5 % (0.0-3.0); HEMATOCRIT 42.7 % (42.0-52.0); HEMOGLOBIN 14.1 g/dl (13.5-17.5); LYMPH # 1.3 10^3/uL (1.5-5.0); LYMPH % 19.2 % (24.0-44.0); MEAN CORPUSCULAR HEMOGLOBIN 31.5 pg (27.0-33.0); MEAN CORPUSCULAR VOLUME 95.3 fl (80.0-96.0); MONO # 1.2 10^3/uL (0.0-0.8); MONO % 17.8 % (2.0-8.0); NEUTROPHILS # 3.9 10^3/uL (1.5-8.5); NEUTROPHILS % 59.9 % (36.0-66.0); PLATELET COUNT, AUTOMATED 178 10^3/uL (150-450); RED BLOOD COUNT 4.48 10^6/uL (4.30-6.10); WHITE BLOOD COUNT 6.5 10^3/uL (4.0-10.0)
== END ==
LOC: M LAB REF 10:17
PROVIDERS: ATTEND Student in an Organized Health Care Education/Training Program
DX: Z00.00 Encounter for general adult medical examination without abnormal findings (principal)

== ENCOUNTER → 2024-04-30 | Outpatient (CLI) | payer MEDICARE ==
[2024-04-30 13:48] LABS: ALBUMIN 3.7 G/DL (3.2-5.2); ALKALINE PHOSPHATASE 68 U/L (40-129); ALT/SGPT 23 U/L (7.0-40); AST/SGOT 21 U/L (<34); BILIRUBIN,DIRECT 0.2 MG/DL (<0.4); BILIRUBIN,TOTAL 0.6 MG/DL (0.3-1.2); BLOOD UREA NITROGEN 14 MG/DL (9-23); CALCIUM LEVEL 10.2 MG/DL (8.3-10.6); CARBON DIOXIDE LEVEL 30 MMOL/L (20-31); CHLORIDE LEVEL 104 MMOL/L (98-107); CHOLESTEROL LEVEL 153 MG/DL (<200); CREATININE FOR GFR 0.87 MG/DL (0.70-1.30); GLOMERULAR FILTRATION RATE > 60.0 (>35); GLUCOSE, FASTING 104 MG/DL (74-106); HDL CHOLESTEROL 42.4 MG/DL (>40); NON-HDL-C 110.6 MG/DL; PHOSPHORUS LEVEL 4.1 MG/DL (2.4-5.1); POTASSIUM SERUM 4.6 MMOL/L (3.5-5.1); SODIUM LEVEL 140 MMOL/L (136-145); TOTAL PROTEIN 6.8 G/DL (5.7-8.2); TRIGLYCERIDES LEVEL 113 MG/DL (<150)
[2024-04-30 13:50] LABS: TOTAL 25(OH) VITAMIN D 21.4 NG/ML (20.0-100.0)
[2024-04-30 14:09] LABS: HEMOGLOBIN A1c 5.6 % (4.0-6.0)
== END ==
LOC: M WUC 08:53
PROVIDERS: ATTEND Student in an Organized Health Care Education/Training Program
DX: Z00.00 Encounter for general adult medical examination without abnormal findings (principal)

== ENCOUNTER → 2024-10-04 | Outpatient (CLI) | payer MEDICARE ==
[~2024-10-04] MED LIST changes: -FLOM0.4C39 PO; +TAMS-18 PO
[2024-10-04 12:48] LABS: BASO # 0.0 10^3/uL (0.0-0.2); BASO % 0.4 % (0.0-1.0); EOS # 0.2 10^3/uL (0.0-0.5); EOS % 3.1 % (0.0-3.0); LYMPH # 1.3 10^3/uL (1.5-5.0); LYMPH % 18.6 % (24.0-44.0); MONO # 1.0 10^3/uL (0.0-0.8); MONO % 13.4 % (2.0-8.0); NEUTROPHILS # 4.6 10^3/uL (1.5-8.5); NEUTROPHILS % 64.2 % (36.0-66.0); PLATELET COUNT, AUTOMATED 177 10^3/uL (150-450)
[2024-10-04 12:59] LABS: VITAMIN B12 LEVEL 933 PG/ML (211-911)
[2024-10-04 13:00] LABS: IRON (FE) 117 UG/DL (65-175); PERCENT SATURATION 38.6 % (19.7-50.0)
[2024-10-04 13:02] LABS: ALT/SGPT 26 U/L (7.0-40); AST/SGOT 24 U/L (<34); CALCIUM LEVEL 10.4 MG/DL (8.3-10.6); CARBON DIOXIDE LEVEL 30 MMOL/L (20-31); CHLORIDE LEVEL 103 MMOL/L (98-107); CREATININE FOR GFR 0.76 MG/DL (0.70-1.30); GLOMERULAR FILTRATION RATE 89.7 (>35); POTASSIUM SERUM 4.6 MMOL/L (3.5-5.1); SODIUM LEVEL 142 MMOL/L (136-145)
== END ==
LOC: M WUC 08:06
PROVIDERS: ATTEND General Practice
DX: C61 Malignant neoplasm of prostate (principal)

== ENCOUNTER → 2024-10-10 | Outpatient (CLI) | payer MEDICARE | LOC: M ONCR 09:17 | PROVIDERS: ATTEND General Practice | DX: C61 Malignant neoplasm of prostate (principal); R35.1 Nocturia; Z92.3 Personal history of irradiation; Z79.818 Long term (current) use of other agents affecting estrogen receptors and estrogen levels; Z87.891 Personal history of nicotine dependence; Z79.01 Long term (current) use of anticoagulants; Z79.899 Other long term (current) drug therapy ==

== ENCOUNTER → 2024-10-23 | Outpatient (CLI) | payer MEDICARE ==
[2024-10-23 14:36] LABS: CALCIUM LEVEL 9.9 MG/DL (8.3-10.6); CARBON DIOXIDE LEVEL 30.0 MMOL/L (20-31); CHLORIDE LEVEL 101.0 MMOL/L (98-107); CREATININE FOR GFR 0.84 MG/DL (0.70-1.30); GLOMERULAR FILTRATION RATE 87.1 (>35); POTASSIUM SERUM 4.3 MMOL/L (3.5-5.1); SODIUM LEVEL 139.0 MMOL/L (136-145)
== END ==
LOC: M WUC 08:40
PROVIDERS: ATTEND Student in an Organized Health Care Education/Training Program
DX: R06.01 Orthopnea (principal)

== ENCOUNTER → 2024-11-07 | Outpatient (REF) | payer MEDICARE | LOC: M SFHCPLAZ 15:59 | PROVIDERS: ATTEND Student in an Organized Health Care Education/Training Program | DX: Z53.9 Procedure and treatment not carried out, unspecified reason (principal) ==

== ENCOUNTER → 2024-11-08 | Outpatient (CLI) | payer MEDICARE ==
[2024-11-08 14:07] LABS: ERYTHROCYTE SEDIMENTATION RATE 9 mm/hr (0-20)
[2024-11-08 14:35] LABS: IRON (FE) 118 UG/DL (65-175)
== END ==
LOC: M WUC 09:07
PROVIDERS: ATTEND Student in an Organized Health Care Education/Training Program
DX: D64.9 Anemia, unspecified (principal)

== ENCOUNTER → 2024-11-27 | Outpatient (CLI) | payer MEDICARE ==
[2024-11-27 12:48] LABS: BASO # 0.0 10^3/uL (0.0-0.2); BASO % 0.3 % (0.0-1.0); EOS # 0.2 10^3/uL (0.0-0.5); EOS % 3.3 % (0.0-3.0); LYMPH # 1.4 10^3/uL (1.5-5.0); LYMPH % 20.3 % (24.0-44.0); MONO # 1.0 10^3/uL (0.0-0.8); MONO % 14.4 % (2.0-8.0); NEUTROPHILS # 4.3 10^3/uL (1.5-8.5); NEUTROPHILS % 61.4 % (36.0-66.0)
[2024-11-27 12:59] LABS: CALCIUM LEVEL 9.9 MG/DL (8.3-10.6); CARBON DIOXIDE LEVEL 30.0 MMOL/L (20-31); CHLORIDE LEVEL 101.0 MMOL/L (98-107); CREATININE FOR GFR 0.77 MG/DL (0.70-1.30); GLOMERULAR FILTRATION RATE 89.4 (>35); POTASSIUM SERUM 4.3 MMOL/L (3.5-5.1); SODIUM LEVEL 141.0 MMOL/L (136-145)
== END ==
LOC: M WUC 08:06
PROVIDERS: ATTEND Internal Medicine Cardiovascular Disease
DX: I48.19 Other persistent atrial fibrillation (principal); I25.119 Atherosclerotic heart disease of native coronary artery with unspecified angina pectoris